=== PATIENT | female | born 1980 | race Two or more races ===

== ENCOUNTER → 2016-07-22 | Outpatient (CLI) | payer OTHER ==
[2016-07-22 12:26] LABS: BASO % 0 % (0-3); EOS % 0 % (0-3); HEMATOCRIT 38.8 % (36.0-47.0); HEMOGLOBIN 12.6 g/dL (12.0-15.5); LYMPH # 1.4 x10^3/uL (1.0-4.8); LYMPH % 13 % (24-48); MEAN CORPUSCULAR HEMOGLOBIN 28 pg (25-35); MEAN CORPUSCULAR HGB CONC 33 g/dL (31-37); MEAN CORPUSCULAR VOLUME 87 fL (79-100); MONO % 7 % (0-9); NEUT % 80 % (31-73); PLATELET COUNT 399 x10^3/uL (140-400); RED BLOOD COUNT 4.48 x10^6/uL (3.50-5.40); RED CELL DISTRIBUTION WIDTH 14.2 % (11.5-14.5); WHITE BLOOD COUNT 11.1 x10^3/uL (4.0-11.0)
[2016-07-22 12:42] LABS: ALBUMIN 3.4 g/dL (3.4-5.0); ALBUMIN/GLOBULIN RATIO 0.8 (1.0-1.7); CALCIUM 9.4 mg/dL (8.5-10.1); CREATININE 0.6 mg/dL (0.6-1.0); GFR 113.8; POTASSIUM 4.3 mmol/L (3.5-5.1); TOTAL BILIRUBIN 0.3 mg/dL (0.2-1.0); TOTAL PROTEIN 7.6 g/dL (6.4-8.2)
== END | disposition home or self-care (01) ==
LOC: LAB 11:44
PROVIDERS: ATTEND Psychiatry & Neurology Neurology
DX: G35 Multiple sclerosis (principal)
CPT/HCPCS: 36415; 80053; 82550; 82607; 84443; 85027

== ENCOUNTER 2019-01-24 09:48 | Inpatient (IN) | payer BC ==
[~2019-01-24] VITALS: Ht 165.1 cm; Wt 79.8 kg
[2019-01-24 10:37] VITALS: BP 105/65
[2019-01-24] MEDS ORDERED: FLU VAX QS 2019-20 (36MOS+)/PF 0.5 ML SYRINGE. VAX IM ONE (10:45)
[2019-01-24] MEDS ORDERED: DALF10TA PO (11:22)
[2019-01-24 14:11] LABS: BASO % 1 % (0-3); EOS # 0.3 x10^3/uL (0.0-0.7); EOS % 4 % (0-3); HEMATOCRIT 37.6 % (36.0-47.0); HEMOGLOBIN 12.1 g/dL (12.0-15.5); LYMPH # 1.9 x10^3/uL (1.0-4.8); LYMPH % 28 % (24-48); MEAN CORPUSCULAR HEMOGLOBIN 25 pg (25-35); MEAN CORPUSCULAR HGB CONC 32 g/dL (31-37); MEAN CORPUSCULAR VOLUME 78 fL (79-100); MONO # 0.5 x10^3/uL (0.0-1.1); MONO % 7 % (0-9); NEUT # 4.1 x10^3/uL (1.8-7.7); NEUT % 60 % (31-73); PLATELET COUNT 429 x10^3/uL (140-400); RED BLOOD COUNT 4.83 x10^6/uL (3.50-5.40); WHITE BLOOD COUNT 6.8 x10^3/uL (4.0-11.0)
--- NOTE | 2019-01-24 14:19 | RAD ---
EXAM: Chest, single view. HISTORY: MS exacerbation. COMPARISON: None. FINDINGS: A frontal view of the chest is obtained. There is no infiltrate, pleural effusion or pneumothorax. The heart is normal in size. IMPRESSION: No acute pulmonary finding. Electronically signed by: Geraldine Tirado MD (01/24/2019 2:17 PM) [place] [id number]
[2019-01-24 14:34] LABS: ALBUMIN 3.2 g/dL (3.4-5.0); ALBUMIN/GLOBULIN RATIO 0.7 (1.0-1.7); CALCIUM 8.8 mg/dL (8.5-10.1); CREATININE 0.8 mg/dL (0.6-1.0); GFR 80.3; POTASSIUM 3.6 mmol/L (3.5-5.1); TOTAL BILIRUBIN 0.2 mg/dL (0.2-1.0); TOTAL PROTEIN 7.8 g/dL (6.4-8.2)
[2019-01-24] MEDS: METOPROLOL SUCC 24HR ER 25 MG TAB.ER.24H. PO SCH (14:40)
[2019-01-24] MEDS: CHOLECALCIFEROL (VITAMIN D3) 1,000 UNIT TABLET PO SCH (14:40)
[2019-01-24] MEDS: IV NORMAL SALINE 1000ML BAG 1,000 ML IV SCH (14:41)
[2019-01-24] MEDS: methylPREDNISolone SOD SUCC PF 125 MG/2 ML VIAL. IV SCH ×2 (14:41→21:33)
[2019-01-24 15:00] VITALS: BP 114/78
[2019-01-24 15:09] LABS: BILIRUBIN,URINE NEGATIVE (NEG); CLARITY,URINE CLOUDY; COLOR,URINE YELLOW; NITRITE,URINE POSITIVE (NEG); PROTEIN,URINE 30 mg/dL (NEG-TRACE)
[2019-01-24 15:14] LABS: BACTERIA,URINE MANY /HPF (0-FEW); SQUAMOUS EPITHELIAL CELL,UR FEW /LPF
[2019-01-24 15:29] LABS: BARBITURATES NEG (NEG); BENZODIAZEPINES NEG (NEG); CANNABINOIDS NEG (NEG); COCAINE NEG (NEG); METHADONE NEG (NEG); OPIATES NEG (NEG); PHENCYCLIDINE NEG (NEG)
[2019-01-24 15:30] LABS: AMPHETAMINE/METHAMPHETAMINE NEG (NEG)
--- NOTE | 2019-01-24 17:12 | PDOC2 ---
NEUROLOGY CONSULT Date of Admission Date of Admission DATE: 01/24/19 TIME: 16:59 Reason for Consult Reason for Consult: IMPRESSION: MS exacerbation? Metabolic encephalopathy. Generalized weakness. UTI. Neurogenic bladder dysfunction. Wheelchair bound. Developmental delay. RECOMMENDATIONS/PLAN: Brain MRI w/wo contrast. Lab: see orders. Treat medical diseases. EEG maybe considered. OT/PT. HISTORY OF THE PRESENT ILLNESS: This is a 38-year-old female patient with history of MS, but no information of immunomodulator treatment in document. The patient had intellectual disability and is unable to provide information. She was reportedly to have mental status changes and increased generalized weakness to be brought to [facility] for further evaluation and treatment. PAST MEDICAL HISTORY: MS. Developmental delay. UTIs. Wheelchair bound. PAST SURGERY HISTORY: No major surgery recently. ALLERGY: Unknown MEDICATIONS: Refer to [facility] HISTORY: Non contributory. SOCIAL HISTORY: Lives at home with her family. Denies smoking, drinking, and illicit drug use. REVIEW OF SYSTEMS: Constitutional: No malnutrition, weight loss, cachexia. Head: No traumatic brain or head injury. Skin: No edema, or rash. Ear: No infection. Eyes: No vision loss or color blindness. Nose: No bleeding or purulent discharges. Hearing: No hearing decrease. Neck: No injury. Breast: No history of cancer, masses,or discharges. Cardiac: No MO, arrhythmia, CAD. Pulmonary: No COPD. GI: No GI ulcer, GI bleeding. Urinary/genital: UTIs. Endocrinologic: No cousin face, craniofacial dysmorphism, polydactyly. Skeletomuscular: Generalized weakness. Neurological: see HP. Psychiatric: Denies drug use/abuse. Otherwise, not -mdshe review of systems. PHYSICAL EXAMINATION: General appearance is in subacute distress. HEENT: Normocephalic and nontraumatic. Eyes, nose, ears, and throat are unrem arkable. Neck is supple. No lymphadenopathy. No crepitus. Cardiovascular: S1, S2, regular rate and rhythm. Pulmonary: Clear to auscultation bilaterally. Abdomen: Bowel sounds are positive. Extremities: No rash, lesions, or edema. No restriction of range of motion NEUROLOGICAL EXAMINATION: Awake. Partially oriented to time, place and person. PERRL. EOMI. CN: no focal findings. Muscle tone: within normal. Muscle strength: 5 UE, 4 LE, Left side 4 DTR: 1-2 Plantar reflex: Neutral response bilaterally Gait: not able to walk. Sensory exam: no acute abnormal findings. No acute cerebellar signs elicited. F-T-N test not performed due to not follow commands. Current Medications Current Medications Current Medications Influenza Virus Vaccine Quadrival (Afluria Quad 2019- (3yr Up) Syringe) 0.5 ml ONCE ONCE VAX IM Last administered on 01/24/19at 14:43; Start 01/24/19 at 10:45; Stop 01/24/19 at 12:42; Status DC Oxybutynin Chloride (Ditropan) 5 mg QHS PO ; Start 01/24/19 at 21:00 Metoprolol Succinate (Toprol Xl) 25 mg DAILY PO Last administered on 01/24/19at 14:40; Start 01/24/19 at 13:00 Vitamin D (Vitamin D3) 1,000 unit DAILY PO Last administered on 01/24/19at 14:40; Start 01/24/19 at 13:00 Sodium Chloride 1,000 ml @ 75 mls/hr [id number] IV Last administered on 01/24/19at 14:41; Start 01/24/19 at 12:45 Methylprednisolone Sodium Succinate (SOLU-Medrol 125MG VIAL) 60 mg Q8HRS IV Last administered on 01/24/19at 14:41; Start 01/24/19 at 14:00 Active Scripts Active Reported Ampyra (Dalfampridine) 10 Mg Tab.er.12h 1 Tab PO BID 30 Days Allergies Allergies: Allergies Coded Allergies Type Severity Reaction Last Updated Verified No Known Drug Allergies 01/24/19 No ROS Review of System The patient denies any associated fevers, chills, headache, ear pain, rhinorrhea, sore throat, stiff neck, productive cough, chest pain, shortness of breath, back or flank pain, abdominal pain, nausea, vomiting, diarrhea, constipation, dysuria, rash, numbness, weakness, tingling, incontinence, difficulty ambulating, or diaphoresis. Physical Exam Physical Exam General: Well developed, well nourished, no acute distress, well appearing HEENT: Pupils equally round and reactive to light, EOMI, no discharge, normal conjunctiva Neck: Supple, no nuchal rigidity, no JVD, trachea midline, no tenderness Cardiac: RRR, no murmurs, no gallops, no rubs Chest/Lungs: CTAB, no wheeze, no rhonchi, no crackles Abdomen: soft, non-distended, no guarding, no peritoneal signs, non-tender Back: No tenderness Extremities: no edema, pulses intact, non-tender,capillary refill <3 sec bilateral upper and lower extremities, Neuro: Alert and oriented x 4, no focal deficits, normal speech Vitals Vitals: Vital Signs Date Time Temp Pulse Resp B/P (MAP) Pulse Ox O2 Delivery O2 Flow Rate FiO2 01/24/19 15:00 97.8 82 18 114/78 (90) 100 Room Air 97.8 Labs Labs Laboratory Tests Test 01/24/19 13:50 01/24/19 15:00 White Blood Count 6.8 x10^3/uL (4.0-11.0) Red Blood Count 4.83 x10^6/uL (3.50-5.40) Hemoglobin 12.1 g/dL (12.0-15.5) Hematocrit 37.6 % (36.0-47.0) Mean Corpuscular Volume 78 fL (79-100) Mean Corpuscular Hemoglobin 25 pg (25-35) Mean Corpuscular Hemoglobin Concent 32 g/dL (31-37) Red Cell Distribution Width 17.0 % (11.5-14.5) Platelet Count 429 x10^3/uL (140-400) Neutrophils (%) (Auto) 60 % (31-73) Lymphocytes (%) (Auto) 28 % (24-48) Monocytes (%) (Auto) 7 % (0-9) Eosinophils (%) (Auto) 4 % (0-3) Basophils (%) (Auto) 1 % (0-3) Neutrophils # (Auto) 4.1 x10^3/uL (1.8-7.7) Lymphocytes # (Auto) 1.9 x10^3/uL (1.0-4.8) Monocytes # (Auto) 0.5 x10^3/uL (0.0-1.1) Eosinophils # (Auto) 0.3 x10^3/uL (0.0-0.7) Basophils # (Auto) 0.0 x10^3/uL (0.0-0.2) Sodium Level 142 mmol/L (136-145) Potassium Level 3.6 mmol/L (3.5-5.1) Chloride Level 105 mmol/L (98-107) Carbon Dioxide Level 28 mmol/L (21-32) Anion Gap 9 (6-14) Blood Urea Nitrogen 11 mg/dL (7-20) Creatinine 0.8 mg/dL (0.6-1.0) Estimated GFR (Cockcroft-Gault) 80.3 BUN/Creatinine Ratio 14 (6-20) Glucose Level 80 mg/dL (70-99) Calcium Level 8.8 mg/dL (8.5-10.1) Total Bilirubin 0.2 mg/dL (0.2-1.0) Aspartate Amino Transf (AST/SGOT) 16 U/L (15-37) Alanine Aminotransferase (ALT/SGPT) 18 U/L (14-59) Alkaline Phosphatase 104 U/L (46-116) Total Protein 7.8 g/dL (6.4-8.2) Albumin 3.2 g/dL (3.4-5.0) Albumin/Globulin Ratio 0.7 (1.0-1.7) Urine Collection Type Unknown Urine Color Yellow Urine Clarity Cloudy Urine pH 6.0 Urine Specific [place] 1.020 Urine Protein 30 mg/dL (NEG-TRACE) Urine Glucose (UA) Negative mg/dL (NEG) Urine Ketones (Stick) Negative mg/dL (NEG) Urine Blood Small (NEG) Urine Nitrite Positive (NEG) Urine Bilirubin Negative (NEG) Urine Urobilinogen Dipstick 1.0 mg/dL (0.2 mg/dL) Urine Leukocyte Esterase Large (NEG) Urine RBC 1-2 /HPF (0-2) Urine WBC 11-20 /HPF (0-4) Urine Squamous Epithelial Cells Few /LPF Urine Bacteria Many /HPF (0-FEW) Urine Mucus Mod /LPF Urine Opiates Screen Neg (NEG) Urine Methadone Screen Neg (NEG) Urine Barbiturates Neg (NEG) Urine Phencyclidine Screen Neg (NEG) Urine Amphetamine/Methamphetamine Neg (NEG) Urine Benzodiazepines Screen Neg (NEG) Urine Cocaine Screen Neg (NEG) Urine Cannabinoids Screen Neg (NEG) Urine Ethyl Alcohol Neg (NEG) Laboratory Tests Test 01/24/19 13:50 01/24/19 15:00 White Blood Count 6.8 x10^3/uL (4.0-11.0) Red Blood Count 4.83 x10^6/uL (3.50-5.40) Hemoglobin 12.1 g/dL (12.0-15.5) Hematocrit 37.6 % (36.0-47.0) Mean Corpuscular Volume 78 fL (79-100) Mean Corpuscular Hemoglobin 25 pg (25-35) Mean Corpuscular Hemoglobin Concent 32 g/dL (31-37) Red Cell Distribution Width 17.0 % (11.5-14.5) Platelet Count 429 x10^3/uL (140-400) Neutrophils (%) (Auto) 60 % (31-73) Lymphocytes (%) (Auto) 28 % (24-48) Monocytes (%) (Auto) 7 % (0-9) Eosinophils (%) (Auto) 4 % (0-3) Basophils (%) (Auto) 1 % (0-3) Neutrophils # (Auto) 4.1 x10^3/uL (1.8-7.7) Lymphocytes # (Auto) 1.9 x10^3/uL (1.0-4.8) Monocytes # (Auto) 0.5 x10^3/uL (0.0-1.1) Eosinophils # (Auto) 0.3 x10^3/uL (0.0-0.7) Basophils # (Auto) 0.0 x10^3/uL (0.0-0.2) Sodium Level 142 mmol/L (136-145) Potassium Level 3.6 mmol/L (3.5-5.1) Chloride Level 105 mmol/L (98-107) Carbon Dioxide Level 28 mmol/L (21-32) Anion Gap 9 (6-14) Blood Urea Nitrogen 11 mg/dL (7-20) Creatinine 0.8 mg/dL (0.6-1.0) Estimated GFR (Cockcroft-Gault) 80.3 BUN/Creatinine Ratio 14 (6-20) Glucose Level 80 mg/dL (70-99) Calcium Level 8.8 mg/dL (8.5-10.1) Total Bilirubin 0.2 mg/dL (0.2-1.0) Aspartate Amino Transf (AST/SGOT) 16 U/L (15-37) Alanine Aminotransferase (ALT/SGPT) 18 U/L (14-59) Alkaline Phosphatase 104 U/L (46-116) Total Protein 7.8 g/dL (6.4-8.2) Albumin 3.2 g/dL (3.4-5.0) Albumin/Globulin Ratio 0.7 (1.0-1.7) Urine Collection Type Unknown Urine Color Yellow Urine Clarity Cloudy Urine pH 6.0 Urine Specific [place] 1.020 Urine Protein 30 mg/dL (NEG-TRACE) Urine Glucose (UA) Negative mg/dL (NEG) Urine Ketones (Stick) Negative mg/dL (NEG) Urine Blood Small (NEG) Urine Nitrite Positive (NEG) Urine Bilirubin Negative (NEG) Urine Urobilinogen Dipstick 1.0 mg/dL (0.2 mg/dL) Urine Leukocyte Esterase Large (NEG) Urine RBC 1-2 /HPF (0-2) Urine WBC 11-20 /HPF (0-4) Urine Squamous Epithelial Cells Few /LPF Urine Bacteria Many /HPF (0-FEW) Urine Mucus Mod /LPF Urine Opiates Screen Neg (NEG) Urine Methadone Screen Neg (NEG) Urine Barbiturates Neg (NEG) Urine Phencyclidine Screen Neg (NEG) Urine Amphetamine/Methamphetamine Neg (NEG) Urine Benzodiazepines Screen Neg (NEG) Urine Cocaine Screen Neg (NEG) Urine Cannabinoids Screen Neg (NEG) Urine Ethyl Alcohol Neg (NEG) REHAN MENDEZ MD Jan 24, 2019 17:12
[2019-01-24 19:20] VITALS: BP 106/61
--- NOTE | 2019-01-24 20:50 | CONS ---
DATE OF CONSULTATION: 01/24/2019 ATTENDING PHYSICIAN: Alla Pearce MD REASON FOR CONSULTATION: The patient was seen at the request of Dr. Pearce for rehab evaluation. HISTORY: This is a 38-year-old female admitted on 01/24/2019, patient with history of multiple sclerosis, has been on disability taking DICTATION ENDS HERE SANA GARCIA MD DR: MAE/morena JOB#: [id number] / [id number]
[2019-01-24] MEDS: OXYBUTYNIN CHLORIDE 5 MG TABLET PO SCH (21:33)
[2019-01-24 23:27] VITALS: BP 107/67
[2019-01-25] MEDS: IV NORMAL SALINE 1000ML BAG 1,000 ML IV SCH ×2 (02:11→15:25)
[2019-01-25 03:58] VITALS: BP 112/65
--- NOTE | 2019-01-25 04:29 | CONS ---
DATE OF CONSULTATION: 01/24/2019 ATTENDING PHYSICIAN: Alla Pearce MD REASON FOR CONSULTATION: The patient was seen at the request of Dr. Pearce for rehab evaluation. HISTORY OF PRESENT ILLNESS: This is a 38-year-old female, on disability, with a diagnosis of multiple sclerosis made about 15 years ago. The patient with mobility, self-care, and cognitive deficits. Also, neurogenic bowel and bladder, had suprapubic catheter placed. The patient is requiring too much help, of 2 persons' assistance with transfers to get into the wheelchair. Her mother is having difficulty to take care of her. The patient was admitted for consideration of [place] [facility]. The patient denies any pain. PHYSICAL EXAMINATION: GENERAL: On examination today revealed a young female. The patient is obese. She is awake, follows some commands. EXTREMITIES: She had generalized muscle weakness with increased muscle tone, especially in the lower extremities. Deep tendon reflexes are slightly brisk in the upper extremities and at the knees, absent at both ankles and she had equal perception of touch and pinprick sensation bilaterally. She had painful range of motion of her extremity joints. Her skin is intact at this time. She requires assistance with bed mobility. She can roll from [id number]. 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 RECOMMENDATIONS: Agree with the plan for physical therapy and occupational therapy and to ask director of social work for consideration of long term care unit transfer when medically stable. Dr. Pearce, I appreciate asking me to participate in the care of this interesting patient. I will be glad to see her for followup with you on an as-needed basis. SANA GARCIA MD DR: MAE/morena JOB#: [id number] / [id number]
[2019-01-25] MEDS: methylPREDNISolone SOD SUCC PF 125 MG/2 ML VIAL. IV SCH ×3 (05:39→21:35)
[2019-01-25 09:00] VITALS: BP 128/76
[2019-01-25] MEDS: CHOLECALCIFEROL (VITAMIN D3) 1,000 UNIT TABLET PO SCH (09:00)
[2019-01-25] MEDS: METOPROLOL SUCC 24HR ER 25 MG TAB.ER.24H. PO SCH (09:01)
--- NOTE | 2019-01-25 09:49 | PDOC ---
Provider Note Provider Note Pt seen.H&P dictated.#[id number]. NEELIMA SAMAYOA MD Jan 25, 2019 09:49
[2019-01-25] MEDS: cefTRIAXone IV Push 1 GM VIAL. IVP SCH (10:19)
[2019-01-25] MEDS: ENOXAPARIN 40 MG/0.4 ML SYRINGE. SQ SCH (10:19)
--- NOTE | 2019-01-25 10:20 | HP ---
ADMIT DATE: 01/24/2019 LOCATION: 440 REASON FOR ADMISSION TO THE HOSPITAL: Multiple sclerosis exacerbation. HISTORY OF PRESENT ILLNESS: The patient is a 38-year-old female patient with history of developmental delay, multiple sclerosis, and generalized weakness. She has a suprapubic catheter and the patient has been at home, taken care by her mom. The patient says her home health has been visiting them recently and they have noticed that the patient's condition has been declining. She has been not getting out of the bed and her condition has declined and has a poor social situation, bad hygiene, and it was felt that it would be better off if she can go to a skilled or a long-term skilled nursing. The patient is being admitted to the hospital for further evaluation and treatment. PAST MEDICAL HISTORY: As mentioned above, has a developmental delay, multiple sclerosis, weakness, and neurogenic bladder, PAST SURGICAL HISTORY: Suprapubic catheter, had seen Urology here as well as . ALLERGIES: No known allergies. MEDICATIONS AT HOME: Ampyra 10 mg q.12 h., 1 tablet twice a day, given by Neurology at . PERSONAL HISTORY: No smoking, alcohol recovery. SOCIAL HISTORY: Lives at home with her mom. She is wheelchair level. REVIEW OF SYMPTOMS: Complains of weakness, not getting out of the bed, and poor social and hygiene conditions at home. PHYSICAL EXAMINATION: GENERAL: The patient is awake, not in any distress. VITAL SIGNS: Temperature 97, pulse 77, respirations 20, blood pressure 105/65, and 100% on room air. HEENT: Head is atraumatic. Pupils equal. Oral cavity: No congestion. NECK: Supple. Thyroid not enlarged. JVD not elevated. CHEST: Symmetrical. CARDIOVASCULAR: S1, S2. LUNGS: Clear to auscultation. ABDOMEN: Soft, no mass palpable, suprapubic catheter is present. RECTAL: Deferred. EXTREMITIES: The patient is eating breakfast, moving upper extremities and she is able to move lower extremities to the side on the bed, not able to lift off the bed. LABORATORY DATA: White count 6.8, hemoglobin 12, platelets 429. Electrolytes show sodium 142, potassium 3.6, chloride 105, bicarbonate 28, BUN 11, creatinine 0.8, glucose 80. LFTs normal. Urine shows large leukocyte esterase, 11-20 wbc's. Drug screen is negative. Chest x-ray: No acute findings. FINAL IMPRESSION: 1. Multiple sclerosis with exacerbation. 2. Developmental delay. 3. Suprapubic catheter present for neurogenic bladder. 4. Generalized weakness, wheelchair level. 5. Possible urinary tract infection, Plan:Pt was admitted to the hospital. IV solumedrol tid for MS exacerbation. Urine cultures sent, start with IV Rocephin. Neuro was consulted. Rehab was consulted. PT, OT, and social work, probably SNU placement. Deep venous thrombosis prevention. NEELIMA SAMAYOA MD DR: HILDA/morena JOB#: [id number] / [id number] [place]
[2019-01-25 11:00] VITALS: BP 114/76
--- NOTE | 2019-01-25 12:26 | NUR ---
SW following for discharge planning. Chart reviewed, discussed with RN. Pt is from home with mom, MRI and EEG today. Per notes, mom is having difficulty taking care of pt lately. PT/OT ordered. SW will continue to follow for discharge planning.
--- NOTE | 2019-01-25 13:28 | PDOC ---
PROGRESS NOTES Subjective Subjective No new complaints. Objective Objective Vital Signs Date Time Temp Pulse Resp B/P (MAP) Pulse Ox O2 Delivery O2 Flow Rate FiO2 01/25/19 11:00 97.4 82 18 114/76 (89) 95 Room Air 97.4 Intake and Output 01/25/19 07:00 Intake Total 1200 ml Output Total 1150 ml Balance 50 ml Intake Oral 1200 ml Output Urine Total 1150 ml # Bowel Movements 2 Physical Exam Physical Exam She is awake and sitting in bed and she continues with generalized muscle weakness and mobility,self care,cognitive and communication limitations. Plan Plan of Care To SNF when medically stable. Comment Review of Relevant I have reviewed the following items raúl (where applicable) has been applied. Labs Laboratory Tests Test 01/24/19 13:50 01/24/19 15:00 White Blood Count 6.8 x10^3/uL (4.0-11.0) Red Blood Count 4.83 x10^6/uL (3.50-5.40) Hemoglobin 12.1 g/dL (12.0-15.5) Hematocrit 37.6 % (36.0-47.0) Mean Corpuscular Volume 78 fL (79-100) Mean Corpuscular Hemoglobin 25 pg (25-35) Mean Corpuscular Hemoglobin Concent 32 g/dL (31-37) Red Cell Distribution Width 17.0 % (11.5-14.5) Platelet Count 429 x10^3/uL (140-400) Neutrophils (%) (Auto) 60 % (31-73) Lymphocytes (%) (Auto) 28 % (24-48) Monocytes (%) (Auto) 7 % (0-9) Eosinophils (%) (Auto) 4 % (0-3) Basophils (%) (Auto) 1 % (0-3) Neutrophils # (Auto) 4.1 x10^3/uL (1.8-7.7) Lymphocytes # (Auto) 1.9 x10^3/uL (1.0-4.8) Monocytes # (Auto) 0.5 x10^3/uL (0.0-1.1) Eosinophils # (Auto) 0.3 x10^3/uL (0.0-0.7) Basophils # (Auto) 0.0 x10^3/uL (0.0-0.2) Sodium Level 142 mmol/L (136-145) Potassium Level 3.6 mmol/L (3.5-5.1) Chloride Level 105 mmol/L (98-107) Carbon Dioxide Level 28 mmol/L (21-32) Anion Gap 9 (6-14) Blood Urea Nitrogen 11 mg/dL (7-20) Creatinine 0.8 mg/dL (0.6-1.0) Estimated GFR (Cockcroft-Gault) 80.3 BUN/Creatinine Ratio 14 (6-20) Glucose Level 80 mg/dL (70-99) Calcium Level 8.8 mg/dL (8.5-10.1) Total Bilirubin 0.2 mg/dL (0.2-1.0) Aspartate Amino Transf (AST/SGOT) 16 U/L (15-37) Alanine Aminotransferase (ALT/SGPT) 18 U/L (14-59) Alkaline Phosphatase 104 U/L (46-116) Total Protein 7.8 g/dL (6.4-8.2) Albumin 3.2 g/dL (3.4-5.0) Albumin/Globulin Ratio 0.7 (1.0-1.7) Urine Collection Type Unknown Urine Color Yellow Urine Clarity Cloudy Urine pH 6.0 Urine Specific [place] 1.020 Urine Protein 30 mg/dL (NEG-TRACE) Urine Glucose (UA) Negative mg/dL (NEG) Urine Ketones (Stick) Negative mg/dL (NEG) Urine Blood Small (NEG) Urine Nitrite Positive (NEG) Urine Bilirubin Negative (NEG) Urine Urobilinogen Dipstick 1.0 mg/dL (0.2 mg/dL) Urine Leukocyte Esterase Large (NEG) Urine RBC 1-2 /HPF (0-2) Urine WBC 11-20 /HPF (0-4) Urine Squamous Epithelial Cells Few /LPF Urine Bacteria Many /HPF (0-FEW) Urine Mucus Mod /LPF Urine Opiates Screen Neg (NEG) Urine Methadone Screen Neg (NEG) Urine Barbiturates Neg (NEG) Urine Phencyclidine Screen Neg (NEG) Urine Amphetamine/Methamphetamine Neg (NEG) Urine Benzodiazepines Screen Neg (NEG) Urine Cocaine Screen Neg (NEG) Urine Cannabinoids Screen Neg (NEG) Urine Ethyl Alcohol Neg (NEG) Laboratory Tests Test 01/24/19 13:50 01/24/19 15:00 White Blood Count 6.8 x10^3/uL (4.0-11.0) Red Blood Count 4.83 x10^6/uL (3.50-5.40) Hemoglobin 12.1 g/dL (12.0-15.5) Hematocrit 37.6 % (36.0-47.0) Mean Corpuscular Volume 78 fL (79-100) Mean Corpuscular Hemoglobin 25 pg (25-35) Mean Corpuscular Hemoglobin Concent 32 g/dL (31-37) Red Cell Distribution Width 17.0 % (11.5-14.5) Platelet Count 429 x10^3/uL (140-400) Neutrophils (%) (Auto) 60 % (31-73) Lymphocytes (%) (Auto) 28 % (24-48) Monocytes (%) (Auto) 7 % (0-9) Eosinophils (%) (Auto) 4 % (0-3) Basophils (%) (Auto) 1 % (0-3) Neutrophils # (Auto) 4.1 x10^3/uL (1.8-7.7) Lymphocytes # (Auto) 1.9 x10^3/uL (1.0-4.8) Monocytes # (Auto) 0.5 x10^3/uL (0.0-1.1) Eosinophils # (Auto) 0.3 x10^3/uL (0.0-0.7) Basophils # (Auto) 0.0 x10^3/uL (0.0-0.2) Sodium Level 142 mmol/L (136-145) Potassium Level 3.6 mmol/L (3.5-5.1) Chloride Level 105 mmol/L (98-107) Carbon Dioxide Level 28 mmol/L (21-32) Anion Gap 9 (6-14) Blood Urea Nitrogen 11 mg/dL (7-20) Creatinine 0.8 mg/dL (0.6-1.0) Estimated GFR (Cockcroft-Gault) 80.3 BUN/Creatinine Ratio 14 (6-20) Glucose Level 80 mg/dL (70-99) Calcium Level 8.8 mg/dL (8.5-10.1) Total Bilirubin 0.2 mg/dL (0.2-1.0) Aspartate Amino Transf (AST/SGOT) 16 U/L (15-37) Alanine Aminotransferase (ALT/SGPT) 18 U/L (14-59) Alkaline Phosphatase 104 U/L (46-116) Total Protein 7.8 g/dL (6.4-8.2) Albumin 3.2 g/dL (3.4-5.0) Albumin/Globulin Ratio 0.7 (1.0-1.7) Urine Collection Type Unknown Urine Color Yellow Urine Clarity Cloudy Urine pH 6.0 Urine Specific [place] 1.020 Urine Protein 30 mg/dL (NEG-TRACE) Urine Glucose (UA) Negative mg/dL (NEG) Urine Ketones (Stick) Negative mg/dL (NEG) Urine Blood Small (NEG) Urine Nitrite Positive (NEG) Urine Bilirubin Negative (NEG) Urine Urobilinogen Dipstick 1.0 mg/dL (0.2 mg/dL) Urine Leukocyte Esterase Large (NEG) Urine RBC 1-2 /HPF (0-2) Urine WBC 11-20 /HPF (0-4) Urine Squamous Epithelial Cells Few /LPF Urine Bacteria Many /HPF (0-FEW) Urine Mucus Mod /LPF Urine Opiates Screen Neg (NEG) Urine Methadone Screen Neg (NEG) Urine Barbiturates Neg (NEG) Urine Phencyclidine Screen Neg (NEG) Urine Amphetamine/Methamphetamine Neg (NEG) Urine Benzodiazepines Screen Neg (NEG) Urine Cocaine Screen Neg (NEG) Urine Cannabinoids Screen Neg (NEG) Urine Ethyl Alcohol Neg (NEG) Medications Current Medications Influenza Virus Vaccine Quadrival (Afluria Quad 2019-20 (3yr Up) Syringe) 0.5 ml ONCE ONCE VAX IM Last administered on 01/24/19at 14:43; Start 01/24/19 at 10:45; Stop 01/24/19 at 12:42; Status DC Oxybutynin Chloride (Ditropan) 5 mg QHS PO Last administered on 01/24/19at 2 1:33; Start 01/24/19 at 21:00 Metoprolol Succinate (Toprol Xl) 25 mg DAILY PO Last administered on 01/25/19 09:01; Start 01/24/19 at 13:00 Vitamin D (Vitamin D3) 1,000 unit DAILY PO Last administered on 01/25/19at 09:00; Start 01/24/19 at 13:00 Sodium Chloride 1,000 ml @ 75 mls/hr [id number] IV Last administered on 11/7/19at 02:11; Start 01/24/19 at 12:45 Methylprednisolone Sodium Succinate (SOLU-Medrol 125MG VIAL) 60 mg Q8HRS IV Last administered on 01/25/19at 05:39; Start 01/24/19 at 14:00 Ceftriaxone Sodium (Rocephin) 1 gm Q24H IVP Last administered on 01/25/19at 10:19; Start 01/25/19 at 10:00 Enoxaparin Sodium (Lovenox 40mg Syringe) 40 mg Q24H SQ Last administered on 01/25/19at 10:19; Start 01/25/19 at 09:45 Non-Formulary Medication (Dalfampridine (Ampyra)) 1 tab BID PO ; Start 01/25/19 at 21:00; Status UNV Active Scripts Active Reported Ampyra (Dalfampridine) 10 Mg Tab.er.12h 1 Tab PO BID 30 Days Vitals/I & O Vital Sign - Last 24 Hours 01/24/19 01/24/19 01/24/19 01/24/19 14:40 15:00 18:22 19:20 Temp 97.8 97.9 97.8 97.9 Pulse 77 82 82 Resp 18 18 B/P (MAP) 105/65 114/78 (90) 106/61 (76) Pulse Ox 100 95 O2 Delivery Room Air Room Air Room Air 01/24/19 01/24/19 01/24/19 01/25/19 20:00 21:35 23:27 03:58 Temp 97.8 97.6 97.8 97.6 Pulse 90 79 Resp 18 18 B/P (MAP) 107/67 (80) 112/65 (81) Pulse Ox 92 92 O2 Delivery Room Air Room Air Room Air Room Air 01/25/19 01/25/19 01/25/19 01/25/19 08:00 09:00 09:01 11:00 Temp 97.8 97.4 97.8 97.4 Pulse 76 79 82 Resp 18 18 B/P (MAP) 128/76 (93) 112/65 114/76 (89) Pulse Ox 99 95 O2 Delivery Room Air Room Air Room Air Intake and Output 01/24/19 01/24/19 01/25/19 15:00 23:00 07:00 Intake Total 300 ml 800 ml 100 ml Output Total 1150 ml Balance 300 ml 800 ml -1050 ml SANA GARCIA MD Jan 25, 2019 13:28
[2019-01-25] MEDS ORDERED: GADOTERATE 7.5 MMOL/15ML VIAL. IVP ONE (13:45)
--- NOTE | 2019-01-25 14:49 | PDOC ---
PROGRESS NOTES Assessment Assessment MS exacerbation? Metabolic encephalopathy. Generalized weakness. UTI. Neurogenic bladder dysfunction. Wheelchair bound. Developmental delay. RECOMMENDATIONS/PLAN: Brain MRI w/wo contrast pending reports. She has been treated with IV steroids. Treat medical diseases. Treat UTI per medical team. EEG. OT/PT. HISTORY OF THE PRESENT ILLNESS: This is a 38-year-old female patient with history of MS, but no information of immunomodulator treatment in document. The patient had intellectual disability and is unable to provide information. She was reportedly to have mental status changes and increased generalized weakness to be brought to [facility] for further evaluation and treatment. PAST MEDICAL HISTORY: MS. Developmental delay. UTIs. Wheelchair bound. PAST SURGERY HISTORY: No major surgery recently. ALLERGY: Unknown MEDICATIONS: Refer to [facility] FAMILY HISTORY: Non contributory. SOCIAL HISTORY: Lives at home with her family. Denies smoking, drinking, and illicit drug use. REVIEW OF SYSTEMS: Constitutional: No malnutrition, weight loss, cachexia. Head: No traumatic brain or head injury. Skin: No edema, or rash. Ear: No infection. Eyes: No vision loss or color blindness. Nose: No bleeding or purulent discharges. Hearing: No hearing decrease. Neck: No injury. Breast: No history of cancer, masses,or discharges. Cardiac: No UT, arrhythmia, CAD. Pulmonary: No COPD. GI: No GI ulcer, GI bleeding. Urinary/genital: UTIs. Endocrinologic: No cousin face, craniofacial dysmorphism, polydactyly. Skeletomuscular: Generalized weakness. Neurological: see HP. Psychiatric: Denies drug use/abuse. Otherwise, not [id number] review of systems. PHYSICAL EXAMINATION: General appearance is in subacute distress. HEENT: Normocephalic and nontraumatic. Eyes, nose, ears, and throat are unremarkable. Neck is supple. No lymphadenopathy. No crepitus. Cardiovascular: S1, S2, regular rate and rhythm. Pulmonary: Clear to auscultation bilaterally. Abdomen: Bowel sounds are positive. Extremities: No rash, lesions, or edema. No restriction of range of motion NEUROLOGICAL EXAMINATION: Awake. Partially oriented to time, place and person. PERRL. EOMI. CN: no focal findings. Muscle tone: within normal. Muscle strength: 5 UE, 4 LE, Left side 4 DTR: 1-2 Plantar reflex: Neutral response bilaterally Gait: not able to walk. Sensory exam: no acute abnormal findings. No acute cerebellar signs elicited. F-T-N test not performed due to not follow commands. Objective Objective Vital Signs Date Time Temp Pulse Resp B/P (MAP) Pulse Ox O2 Delivery O2 Flow Rate FiO2 01/25/19 11:00 97.4 82 18 114/76 (89) 95 Room Air 97.4 Intake and Output 01/25/19 07:00 Intake Total 1200 ml Output Total 1150 ml Balance 50 ml Intake Oral 1200 ml Output Urine Total 1150 ml # Bowel Movements 2 Vitals Signs Vitals VS - Last 72 Hours, by Label Date Time Temp Pulse Resp B/P (MAP) Pulse Ox O2 Delivery O2 Flow Rate FiO2 01/25/19 11:00 97.4 82 18 114/76 (89) 95 Room Air 97.4 01/25/19 09:01 79 112/65 01/25/19 09:00 97.8 76 18 128/76 (93) 99 Room Air 97.8 01/25/19 08:00 Room Air 01/25/19 03:58 97.6 79 18 112/65 (81) 92 Room Air 97.6 01/24/19 23:27 97.8 90 18 107/67 (80) 92 Room Air 97.8 01/24/19 21:35 Room Air 01/24/19 20:00 Room Air 01/24/19 19:20 97.9 82 18 106/61 (76) 95 Room Air 97.9 01/24/19 18:22 Room Air 01/24/19 15:00 97.8 82 18 114/78 (90) 100 Room Air 97.8 01/24/19 14:40 77 105/65 01/24/19 10:37 97.9 77 20 105/65 (78) 100 Room Air 97.9 Laboratory Laboratory Laboratory Tests Test 01/24/19 15:00 Urine Collection Type Unknown Urine Color Yellow Urine Clarity Cloudy Urine pH 6.0 Urine Specific [place] 1.020 Urine Protein 30 mg/dL (NEG-TRACE) Urine Glucose (UA) Negative mg/dL (NEG) Urine Ketones (Stick) Negative mg/dL (NEG) Urine Blood Small (NEG) Urine Nitrite Positive (NEG) Urine Bilirubin Negative (NEG) Urine Urobilinogen Dipstick 1.0 mg/dL (0.2 mg/dL) Urine Leukocyte Esterase Large (NEG) Urine RBC 1-2 /HPF (0-2) Urine WBC 11-20 /HPF (0-4) Urine Squamous Epithelial Cells Few /LPF Urine Bacteria Many /HPF (0-FEW) Urine Mucus Mod /LPF Urine Opiates Screen Neg (NEG) Urine Methadone Screen Neg (NEG) Urine Barbiturates Neg (NEG) Urine Phencyclidine Screen Neg (NEG) Urine Amphetamine/Methamphetamine Neg (NEG) Urine Benzodiazepines Screen Neg (NEG) Urine Cocaine Screen Neg (NEG) Urine Cannabinoids Screen Neg (NEG) Urine Ethyl Alcohol Neg (NEG) Medication Medications Current Medications Ceftriaxone Sodium (Rocephin) 1 gm Q24H IVP Last administered on 01/25/19at 10:19; Start 01/25/19 at 10:00 Enoxaparin Sodium (Lovenox 40mg Syringe) 40 mg Q24H SQ Last administered on 01/25/19at 10:19; Start 01/25/19 at 09:45 Gadoterate Meglumine (Dotarem) 16 ml 1X ONCE IVP Last administered on 01/25/19at 13:46; Start 01/25/19 at 13:45; Stop 01/25/19 at 13:46; Status DC Non-Formulary Medication (Dalfampridine (Ampyra)) 1 tab BID PO ; Start 01/25/19 at 21:00; Status UNV Oxybutynin Chloride (Ditropan) 5 mg QHS PO Last administered on 01/24/19at 21:33; Start 01/24/19 at 21:00 Comment Review of Relevant I have reviewed the following items raúl (where applicable) has been applied. REHAN MENDEZ MD Jan 25, 2019 14:49
[2019-01-25 15:00] VITALS: BP 129/77
--- NOTE | 2019-01-25 16:32 | RAD ---
BRAIN WO/W CONTRAST History: MS exacerbation Technique: Multiplanar, multi sequential pre and postcontrast MR imaging was performed of the brain. Comparison: August 20, 2016 Findings: No acute infarct. No intracranial hemorrhage. Multifocal focal and confluent foci of T/FLAIR hyperintensity within the subcortical, periventricular and deep white matter including the left basal ganglia, corpus callosum and left brachium pontis. Increased lesion within the right frontal periventricular white matter (series 7 image #18). There are T1 hypointense lesions. No pathologic enhancement. Imaged orbits are unremarkable. Imaged paranasal sinuses and mastoid air cells are clear. Impression: 1. Multifocal white matter lesions in a pattern typical of multiple sclerosis. Increased right frontal periventricular white matter lesion compared to 2017. No pathologic enhancement. Electronically signed by: Jeff Prieto DO (01/25/2019 4:29 PM) [id number]
--- NOTE | 2019-01-25 18:33 | EEG ---
DATE OF SERVICE: 01/25/2019 EEG NUMBER: [id number]. OBJECTIVE: This is a 38-year-old female patient with history of multiple sclerosis. She has mental status changes. EEG was requested to evaluate cerebral activity and to help rule out subclinical seizure. METHODS: Twenty electrodes were applied according to the international 10-20 electrode placement system. EKG monitoring, hyperventilation, intermittent photic stimulation, monopolar and bipolar montages are routinely utilized. The record was obtained on a digital system with video monitoring. FINDINGS: 1. Background: The patient was recorded in the awake and drowsy states. No actual sleep state was recorded. The overall background amplitude is 10-20 microvolts. A posterior dominant rhythm of 8-9 Hz is observed. 2. Abnormalities: No specific epileptiform discharge or electrographic seizure is seen. No focal or diffuse slowing. 3. Activation: Hyperventilation was performed with fair efforts and normal response. Intermittent photic stimulation was performed with photic driving. IMPRESSION: This electroencephalogram is a normal study for the awake and drowsy states. No actual sleep state was recorded. No focal, lateralizing, specific epileptiform discharge, or electrographic seizure is seen. REHAN MENDEZ MD DR: MARILU/morena JOB#: [id number] / [id number] ELDON
[2019-01-25 19:00] VITALS: BP 121/66
[2019-01-25] MEDS: DALFAMPRIDINE PO SCH (21:00)
[2019-01-25] MEDS ORDERED: ACETAMINOPHEN 500 MG TABLET PO PRN (21:30)
[2019-01-25] MEDS: OXYBUTYNIN CHLORIDE 5 MG TABLET PO SCH (21:35)
[2019-01-25 22:40] VITALS: BP 115/58
[2019-01-26 02:44] VITALS: BP 109/66
[2019-01-26] MEDS: IV NORMAL SALINE 1000ML BAG 1,000 ML IV SCH (04:45)
[2019-01-26] MEDS: methylPREDNISolone SOD SUCC PF 125 MG/2 ML VIAL. IV SCH (05:37)
[2019-01-26 07:00] VITALS: BP 129/76
[2019-01-26 07:20] LABS: CHOLESTEROL/HDL RATIO 3.9
[2019-01-26] MEDS: METOPROLOL SUCC 24HR ER 25 MG TAB.ER.24H. PO SCH (08:44)
[2019-01-26] MEDS: DALFAMPRIDINE PO SCH ×2 (08:47→21:00)
[2019-01-26] MEDS: CHOLECALCIFEROL (VITAMIN D3) 1,000 UNIT TABLET PO SCH (08:58)
[2019-01-26] MEDS: cefTRIAXone IV Push 1 GM VIAL. IVP SCH (08:59)
[2019-01-26] MEDS: ENOXAPARIN 40 MG/0.4 ML SYRINGE. SQ SCH (08:59)
[2019-01-26] MEDS ORDERED: predniSONE 10 MG TABLET PO SCH (09:45)
--- NOTE | 2019-01-26 09:49 | PDOC ---
PROGRESS NOTES Subjective Subjective feels ok Objective Objective Vital Signs Date Time Temp Pulse Resp B/P (MAP) Pulse Ox O2 Delivery O2 Flow Rate FiO2 01/26/19 07:00 98.2 60 16 129/76 (93) 94 Room Air 98.2 Intake and Output 01/26/19 07:00 Intake Total 1400 ml Output Total 1650 ml Balance -250 ml Intake Oral 1400 ml Output Urine Total 1650 ml Physical Exam Abdomen: Normal bowel sounds, Soft Heart: Regular rate, Normal S1, Normal S2 Extremities: No clubbing General: Alert HEENT: Atraumatic Lungs: Clear to auscultation MUSCULOSKELETAL: No swelling Neuro: Normal speech Psych/Mental Status: Mood NL COMMENT weakness legs Assessment Assessment FINAL IMPRESSION: 1. Multiple sclerosis with exacerbation. 2. Developmental challenged 3. Suprapubic catheter present for neurogenic bladder. 4. Generalized weakness, wheelchair level. 5. Possible urinary tract infection, Plan: MRI brain showed new lesions. EEG neg labs ok . d/c to SNU. oral antibiotics for uti. Pt was admitted to the hospital. IV solumedrol tid for MS exacerbation. Urine cultures sent, start with IV Rocephin. Neuro was consulted. Rehab was consulted. PT, OT, and social work, probably SNU placement. Deep venous thrombosis prevention. Comment Review of Relevant I have reviewed the following items raúl (where applicable) has been applied. Labs Laboratory Tests Test 01/26/19 05:27 Triglycerides Level 55 mg/dL (0-150) Cholesterol Level 185 mg/dL (0-200) LDL Cholesterol, Calculated 126 mg/dL (0-100) VLDL Cholesterol, Calculated 11 mg/dL (0-40) Non-HDL Cholesterol Calculated 137 mg/dL (0-129) HDL Cholesterol 48 mg/dL (40-60) Cholesterol/HDL Ratio 3.9 Thyroid Stimulating Hormone (TSH) 0.474 uIU/mL (0.358-3.74) Medications Current Medications Acetaminophen (Tylenol) 500 mg PRN Q6HRS PRN PO MILD PAIN 1-3 Last administered on 01/25/19at 21:35; Start 01/25/19 at 21:30 Ceftriaxone Sodium (Rocephin) 1 gm Q24H IVP Last administered on 01/26/19at 08:59; Start 01/25/19 at 10:00 Gadoterate Meglumine (Dotarem) 16 ml 1X ONCE IVP Last administered on 01/25/19at 13:46; Start 01/25/19 at 13:45; Stop 01/25/19 at 13:46; Status DC Non-Formulary Medication (Dalfampridine (Ampyra)) 1 tab BID PO ; Start 01/25/19 at 21:00; Status UNV Vitals/I & O Vital Sign - Last 24 Hours 01/25/19 01/25/19 01/25/19 01/25/19 11:00 15:00 19:00 20:00 Temp 97.4 97.5 97.8 97.4 97.5 97.8 Pulse 82 78 79 Resp 18 18 16 B/P (MAP) 114/76 (89) 129/77 (94) 121/66 (84) Pulse Ox 95 95 96 O2 Delivery Room Air Room Air Room Air Room Air 01/25/19 01/26/19 01/26/19 22:40 02:44 07:00 Temp 97.7 98.1 98.2 97.7 98.1 98.2 Pulse 67 75 60 Resp 17 20 16 B/P (MAP) 115/58 (77) 109/66 (80) 129/76 (93) Pulse Ox 95 95 94 O2 Delivery Room Air Room Air Room Air Intake and Output 01/25/19 01/25/19 01/26/19 15:00 23:00 07:00 Intake Total 540 ml 370 ml 490 ml Output Total 800 ml 850 ml Balance 540 ml -430 ml -360 ml NEELIMA SAMAYOA MD Jan 26, 2019 09:48
[2019-01-26] MEDS ORDERED: METO-239 PO (09:56)
[2019-01-26] MEDS ORDERED: ACET500T68 PO (09:56)
[2019-01-26] MEDS ORDERED: OXYB5TAB10 PO (09:56)
[2019-01-26] MEDS ORDERED: CHOL10003 PO (09:56)
[2019-01-26] MEDS ORDERED: CEFD300C PO (09:56)
--- NOTE | 2019-01-26 09:58 | SNU/HH DC ---
DISCHARGE ORDERS DISCHARGE INFORMATION: DISCHARGE DATE: Jan 26, 2019 CONDITION ON DISCHARGE: Stable CODE STATUS: Code Status: Full ALF: SNF STAY <30 DAYS: Yes HOSPICE: HOSPICE: No HOSPICE EVAL & TREAT: No LTAC: ADMIT TO LTAC: No POST DISCHARGE ORDERS: ACTIVITY ORDERS: Activity as tolerated DIET AFTER DISCHARGE: Low Sodium 2 gm CHECKS AFTER DISCHARGE: CHECKS AFTER DISCHARGE: Check blood press - daily FOLLOW-UP: Additional Instructions: supra pubic catheter care TREATMENT/EQUIPMENT ORDERS: Physical Therapy For: Evalulation/Treatment Occupational Therapy For: Evaluation/Treatment DISCHARGE MEDICATIONS: Home Meds Reported Medications Dalfampridine (AMPYRA) 10 Mg Tab.er.12h, 1 TAB PO BID for MS for 30 Days, #60 TAB 0 Refills 01/24/19 NEELIMA SAMAYOA MD Jan 26, 2019 09:58
--- NOTE | 2019-01-26 09:59 | PDOC ---
PROGRESS NOTES Subjective Subjective No new complaints. Objective Objective Vital Signs Date Time Temp Pulse Resp B/P (MAP) Pulse Ox O2 Delivery O2 Flow Rate FiO2 01/26/19 07:00 98.2 60 16 129/76 (93) 94 Room Air 98.2 Intake and Output 01/26/19 07:00 Intake Total 1400 ml Output Total 1650 ml Balance -250 ml Intake Oral 1400 ml Output Urine Total 1650 ml Physical Exam Physical Exam She is awake,sitting in bed with head end of bed elevated and she continues with generalized muscle weakness and requires maximal assistance with mobility. Plan Plan of Care Waiting for SNF transfer when medically stable. Comment Review of Relevant I have reviewed the following items raúl (where applicable) has been applied. Labs Laboratory Tests Test 01/24/19 13:50 01/24/19 15:00 01/26/19 05:27 White Blood Count 6.8 x10^3/uL (4.0-11.0) Red Blood Count 4.83 x10^6/uL (3.50-5.40) Hemoglobin 12.1 g/dL (12.0-15.5) Hematocrit 37.6 % (36.0-47.0) Mean Corpuscular Volume 78 fL (79-100) Mean Corpuscular Hemoglobin 25 pg (25-35) Mean Corpuscular Hemoglobin Concent 32 g/dL (31-37) Red Cell Distribution Width 17.0 % (11.5-14.5) Platelet Count 429 x10^3/uL (140-400) Neutrophils (%) (Auto) 60 % (31-73) Lymphocytes (%) (Auto) 28 % (24-48) Monocytes (%) (Auto) 7 % (0-9) Eosinophils (%) (Auto) 4 % (0-3) Basophils (%) (Auto) 1 % (0-3) Neutrophils # (Auto) 4.1 x10^3/uL (1.8-7.7) Lymphocytes # (Auto) 1.9 x10^3/uL (1.0-4.8) Monocytes # (Auto) 0.5 x10^3/uL (0.0-1.1) Eosinophils # (Auto) 0.3 x10^3/uL (0.0-0.7) Basophils # (Auto) 0.0 x10^3/uL (0.0-0.2) Sodium Level 142 mmol/L (136-145) Potassium Level 3.6 mmol/L (3.5-5.1) Chloride Level 105 mmol/L (98-107) Carbon Dioxide Level 28 mmol/L (21-32) Anion Gap 9 (6-14) Blood Urea Nitrogen 11 mg/dL (7-20) Creatinine 0.8 mg/dL (0.6-1.0) Estimated GFR (Cockcroft-Gault) 80.3 BUN/Creatinine Ratio 14 (6-20) Glucose Level 80 mg/dL (70-99) Calcium Level 8.8 mg/dL (8.5-10.1) Total Bilirubin 0.2 mg/dL (0.2-1.0) Aspartate Amino Transf (AST/SGOT) 16 U/L (15-37) Alanine Aminotransferase (ALT/SGPT) 18 U/L (14-59) Alkaline Phosphatase 104 U/L (46-116) Total Protein 7.8 g/dL (6.4-8.2) Albumin 3.2 g/dL (3.4-5.0) Albumin/Globulin Ratio 0.7 (1.0-1.7) Urine Collection Type Unknown Urine Color Yellow Urine Clarity Cloudy Urine pH 6.0 Urine Specific [place] 1.020 Urine Protein 30 mg/dL (NEG-TRACE) Urine Glucose (UA) Negative mg/dL (NEG) Urine Ketones (Stick) Negative mg/dL (NEG) Urine Blood Small (NEG) Urine Nitrite Positive (NEG) Urine Bilirubin Negative (NEG) Urine Urobilinogen Dipstick 1.0 mg/dL (0.2 mg/dL) Urine Leukocyte Esterase Large (NEG) Urine RBC 1-2 /HPF (0-2) Urine WBC 11-20 /HPF (0-4) Urine Squamous Epithelial Cells Few /LPF Urine Bacteria Many /HPF (0-FEW) Urine Mucus Mod /LPF Urine Opiates Screen Neg (NEG) Urine Methadone Screen Neg (NEG) Urine Barbiturates Neg (NEG) Urine Phencyclidine Screen Neg (NEG) Urine Amphetamine/Methamphetamine Neg (NEG) Urine Benzodiazepines Screen Neg (NEG) Urine Cocaine Screen Neg (NEG) Urine Cannabinoids Screen Neg (NEG) Urine Ethyl Alcohol Neg (NEG) Triglycerides Level 55 mg/dL (0-150) Cholesterol Level 185 mg/dL (0-200) LDL Cholesterol, Calculated 126 mg/dL (0-100) VLDL Cholesterol, Calculated 11 mg/dL (0-40) Non-HDL Cholesterol Calculated 137 mg/dL (0-129) HDL Cholesterol 48 mg/dL (40-60) Cholesterol/HDL Ratio 3.9 Thyroid Stimulating Hormone (TSH) 0.474 uIU/mL (0.358-3.74) Laboratory Tests Test 01/26/19 05:27 Triglycerides Level 55 mg/dL (0-150) Cholesterol Level 185 mg/dL (0-200) LDL Cholesterol, Calculated 126 mg/dL (0-100) VLDL Cholesterol, Calculated 11 mg/dL (0-40) Non-HDL Cholesterol Calculated 137 mg/dL (0-129) HDL Cholesterol 48 mg/dL (40-60) Cholesterol/HDL Ratio 3.9 Thyroid Stimulating Hormone (TSH) 0.474 uIU/mL (0.358-3.74) Medications Current Medications Influenza Virus Vaccine Quadrival (Afluria Quad 2019-20 (3yr Up) Syringe) 0.5 ml ONCE ONCE VAX IM Last administered on 01/24/19at 14:43; Start 01/24/19 at 10:45; Stop 01/24/19 at 12:42; Status DC Oxybutynin Chloride (Ditropan) 5 mg QHS PO Last administered on 01/25/19at 21:35; Start 01/24/19 at 21:00 Metoprolol Succinate (Toprol Xl) 25 mg DAILY PO Last administered on 01/25/19at 09:01; Start 01/24/19 at 13:00 Vitamin D (Vitamin D3) 1,000 unit DAILY PO Last administered on 01/26/19at 08:58; Start 01/24/19 at 13:00 Sodium Chloride 1,000 ml @ 75 mls/hr [id number] IV Last administered on 01/25/19at 02:11; Start 01/24/19 at 12:45; Stop 01/26/19 at 09:53; Status DC Methylprednisolone Sodium Succinate (SOLU-Medrol 125MG VIAL) 60 mg Q8HRS IV Last administered on 01/26/19at 05:37; Start 01/24/19 at 14:00; Stop 01/26/19 at 09:53; Status DC Ceftriaxone Sodium (Rocephin) 1 gm Q24H IVP Last administered on 01/26/19at 08:59; Start 01/25/19 at 10:00; Stop 01/26/19 at 09:53; Status DC Enoxaparin Sodium (Lovenox 40mg Syringe) 40 mg Q24H SQ Last administered on 01/26/19at 08:59; Start 01/25/19 at 09:45 Non-Formulary Medication (Dalfampridine (Ampyra)) 1 tab BID PO ; Start 01/25/19 at 21:00; Status UNV Gadoterate Meglumine (Dotarem) 16 ml 1X ONCE IVP Last administered on 01/25/19at 13:46; Start 01/25/19 at 13:45; Stop 01/25/19 at 13:46; Status DC Acetaminophen (Tylenol) 500 mg PRN Q6HRS PRN PO MILD PAIN 1-3 Last administered on 01/25/19at 21:35; Start 01/25/19 at 21:30 Cefdinir (Omnicef) 300 mg BID PO ; Start 01/26/19 at 09:45; Stop 01/31/19 at 06:00 Prednisone (Prednisone) 50 mg DAILY PO ; Start 01/26/19 at 09:45; Stop 01/31/19 at 06:00 Active Scripts Active Reported Ampyra (Dalfampridine) 10 Mg Tab.er.12h 1 Tab PO BID 30 Days Vitals/I & O Vital Sign - Last 24 Hours 01/25/19 01/25/19 01/25/19 01/25/19 11:00 15:00 19:00 20:00 Temp 97.4 97.5 97.8 97.4 97.5 97.8 Pulse 82 78 79 Resp 18 18 16 B/P (MAP) 114/76 (89) 129/77 (94) 121/66 (84) Pulse Ox 95 95 96 O2 Delivery Room Air Room Air Room Air Room Air 01/25/19 01/26/19 01/26/19 22:40 02:44 07:00 Temp 97.7 98.1 98.2 97.7 98.1 98.2 Pulse 67 75 60 Resp 17 20 16 B/P (MAP) 115/58 (77) 109/66 (80) 129/76 (93) Pulse Ox 95 95 94 O2 Delivery Room Air Room Air Room Air Intake and Output 01/25/19 01/25/19 01/26/19 15:00 23:00 07:00 Intake Total 540 ml 370 ml 490 ml Output Total 800 ml 850 ml Balance 540 ml -430 ml -360 ml SANA GARCIA MD Jan 26, 2019 09:59
[2019-01-26] MEDS: CEFDINIR 300 MG CAPSULE PO SCH ×2 (10:09→21:20)
--- NOTE | 2019-01-26 10:13 | PDOC ---
Provider Note Provider Note Discharge summamry dictated.#[id number]. NEELIMA SAMAYOA MD Jan 26, 2019 10:13
--- NOTE | 2019-01-26 10:35 | DS ---
DATE OF DISCHARGE: 01/29/2019 REASON FOR ADMISSION TO THE HOSPITAL: Multiple sclerosis exacerbation. CONSULTATIONS: 1. Dr. Keys. 2. Dr. Bolton. PROCEDURES DONE: MRI of the brain and EEG. COMPLICATIONS NOTED: None. HOSPITAL COURSE: The patient is a 38-year-old female. The patient is mentally challenging as well as has multiple sclerosis. She is in a wheelchair, lately she has been weak and poor social situation at home and the patient was admitted to the hospital, had MRI of the brain that showed some new lesions in the brain. The patient was given IV Solu-Medrol. The patient is already on Ampyra twice a day for MS, was given by Neurology. The patient also has a suprapubic catheter and had a UTI, was treated with Rocephin, culture was pending. The patient was weak, was seen by rehab, Dr. Bolton. It was felt that she needs to [facility] for further therapy and rehabilitation. FINAL DIAGNOSES: 1. Acute exacerbation of multiple sclerosis, new lesions on the MRI. 2. Weakness in the lower extremities secondary to multiple sclerosis. 3. Suprapubic catheter, presents for urinary tract infections secondary to suprapubic catheter. 4. Hypertension. 5. Mentally challenged. 6. UTI gram neg. DISPOSITION: To SNU. See [facility] for discharge medications, PT, OT. The patient had EEG negative for seizure activity. NEELIMA SAMAYOA MD DR: HILDA/morena JOB#: [id number] / [id number] ELDON
[2019-01-26 11:00] VITALS: BP 142/73
--- NOTE | 2019-01-26 11:13 | NUR ---
SULMA following. Discussed with RN, SULMA attempted to call pt's mother, Roya ([phone]) to discuss discharge planning and PT/OT recommendation of SNU. Phone call could not be connected from hospital desk phone or cell phone. SULMA played phone system message to RN, RN advised it sounds like the phone bill may not have been paid. SULMA unable to contact pt family at this time. SULMA asked RN to notify SULMA if someone comes to visit with pt, or if pt's mother calls the nurses station. SULMA will continue to follow.
--- NOTE | 2019-01-26 14:22 | NUR ---
SULMA following. SULMA was able to contact pt's mother, Roya at [phone]. Roya would like for pt to go to SNU then back home. Roya requested referral be sent to [facility]. SW faxed referral, [facility] cannot accept pt as they do not feel as though she has any skilled needs. SULMA left voicemail for Roya to determine second choice - SW had mentioned [facility] during prior phone call. SW to fax referral to [facility], awaiting pt's mothers return call. RN notified. SULMA will continue to follow.
--- NOTE | 2019-01-26 14:52 | PDOC ---
PROGRESS NOTES Assessment Assessment MS exacerbation? Metabolic encephalopathy. Generalized weakness. UTI. Neurogenic bladder dysfunction. Wheelchair bound. Developmental delay. No evidence of MS flare up. RECOMMENDATIONS/PLAN: Treat medical diseases. Treat UTI per medical team. Steroids Not recommended. May stop. OT/PT. FU with PCP. FU with Neurology as needed. HISTORY OF THE PRESENT ILLNESS: This is a 38-year-old female patient with history of MS, but no information of immunomodulator treatment in document. The patient had intellectual disability and is unable to provide information. She was reportedly to have mental status changes and increased generalized weakness to be brought to [facility] for further evaluation and treatment. PAST MEDICAL HISTORY: MS. Developmental delay. UTIs. Wheelchair bound. PAST SURGERY HISTORY: No major surgery recently. ALLERGY: Unknown MEDICATIONS: Refer to [facility] FAMILY HISTORY: Non contributory. SOCIAL HISTORY: Lives at home with her family. Denies smoking, drinking, and illicit drug use. REVIEW OF SYSTEMS: Constitutional: No malnutrition, weight loss, cachexia. Head: No traumatic brain or head injury. Skin: No edema, or rash. Ear: No infection. Eyes: No vision loss or color blindness. Nose: No bleeding or purulent discharges. Hearing: No hearing decrease. Neck: No injury. Breast: No history of cancer, masses,or discharges. Cardiac: No NM, arrhythmia, CAD. Pulmonary: No COPD. GI: No GI ulcer, GI bleeding. Urinary/genital: UTIs. Endocrinologic: No cousin face, craniofacial dysmorphism, polydactyly. Skeletomuscular: Generalized weakness. Neurological: see HP. Psychiatric: Denies drug use/abuse. Otherwise, not [id number] review of systems. PHYSICAL EXAMINATION: General appearance is in no acute distress. HEENT: Normocephalic and nontraumatic. Eyes, nose, ears, and throat are unremarkable. Neck is supple. No lymphadenopathy. No crepitus. Cardiovascular: S1, S2, regular rate and rhythm. Pulmonary: Clear to auscultation bilaterally. Abdomen: Bowel sounds are positive. Extremities: No rash, lesions, or edema. No restriction of range of motion NEUROLOGICAL EXAMINATION: Awake. Partially oriented to time, place and person. PERRL. EOMI. CN: no focal findings. Muscle tone: within normal. Muscle strength: 5 UE, 4+ LE, Left side 4 DTR: 1-2 Plantar reflex: Neutral response bilaterally Gait: not examined. Sensory exam: no acute abnormal findings. No acute cerebellar signs elicited. F-T-N test mildly inaccurate. Objective Objective Vital Signs Date Time Temp Pulse Resp B/P (MAP) Pulse Ox O2 Delivery O2 Flow Rate FiO2 01/26/19 11:00 98.1 66 18 142/73 (96) 96 Room Air 98.1 Intake and Output 01/26/19 07:00 Intake Total 1400 ml Output Total 1650 ml Balance -250 ml Intake Oral 1400 ml Output Urine Total 1650 ml Vitals Signs Vitals VS - Last 72 Hours, by Label Date Time Temp Pulse Resp B/P (MAP) Pulse Ox O2 Delivery O2 Flow Rate FiO2 01/26/19 11:00 98.1 66 18 142/73 (96) 96 Room Air 98.1 01/26/19 08:00 Room Air 01/26/19 07:00 98.2 60 16 129/76 (93) 94 Room Air 98.2 01/26/19 02:44 98.1 75 20 109/66 (80) 95 Room Air 98.1 01/25/19 22:40 97.7 67 17 115/58 (77) 95 Room Air 97.7 01/25/19 20:00 Room Air 01/25/19 19:00 97.8 79 16 121/66 (84) 96 Room Air 97.8 01/25/19 15:00 97.5 78 18 129/77 (94) 95 Room Air 97.5 01/25/19 11:00 97.4 82 18 114/76 (89) 95 Room Air 97.4 01/25/19 09:01 79 112/65 01/25/19 09:00 97.8 76 18 128/76 (93) 99 Room Air 97.8 01/25/19 08:00 Room Air Laboratory Laboratory Laboratory Tests Test 01/26/19 05:27 Triglycerides Level 55 mg/dL (0-150) Cholesterol Level 185 mg/dL (0-200) LDL Cholesterol, Calculated 126 mg/dL (0-100) VLDL Cholesterol, Calculated 11 mg/dL (0-40) Non-HDL Cholesterol Calculated 137 mg/dL (0-129) HDL Cholesterol 48 mg/dL (40-60) Cholesterol/HDL Ratio 3.9 Thyroid Stimulating Hormone (TSH) 0.474 uIU/mL (0.358-3.74) Medication Medications Current Medications Acetaminophen (Tylenol) 500 mg PRN Q6HRS PRN PO MILD PAIN 1-3 Last administered on 01/25/19at 21:35; Start 01/25/19 at 21:30 Cefdinir (Omnicef) 300 mg BID PO Last administered on 01/26/19 10:09; Start 01/26/19 at 09:45; Stop 01/31/19 at 06:00 Non-Formulary Medication (Dalfampridine (Ampyra)) 1 tab BID PO ; Start 01/25/19 at 21:00; Status UNV Prednisone (Prednisone) 50 mg DAILY PO Last administered on 01/26/19at 10:09; Start 01/26/19 at 09:45; Stop 01/31/19 at 06:00 Comment Review of Relevant I have reviewed the following items raúl (where applicable) has been applied. REHAN MENDEZ MD Jan 26, 2019 14:52
[2019-01-26 15:00] VITALS: BP 123/69
--- NOTE | 2019-01-26 15:14 | NUR ---
Wound care: Patient seen per wound care consult regarding suprapubic catheter site. Site is leaking but there is no open wound, area around catheter is reddened but not open. A drain sponge placed to keep drainage off skin. There are no open wounds at this time. Bed lowered and call light in reach. Wound care will sign off at this time.
[2019-01-26 19:30] VITALS: BP 132/77
[2019-01-26] MEDS: OXYBUTYNIN CHLORIDE 5 MG TABLET PO SCH (21:20)
[2019-01-26 23:08] VITALS: BP 130/75
[2019-01-27 01:08] LABS: HEMOGLOBIN A1C 5.4 % (4.8-5.6)
[2019-01-27 03:23] VITALS: BP 105/60
[2019-01-27 07:00] VITALS: BP 118/64
[2019-01-27] MEDS: DALFAMPRIDINE PO SCH ×2 (09:00→20:10)
--- NOTE | 2019-01-27 09:44 | PDOC ---
PROGRESS NOTES Subjective Subjective feels ok Objective Objective Vital Signs Date Time Temp Pulse Resp B/P (MAP) Pulse Ox O2 Delivery O2 Flow Rate FiO2 01/27/19 07:00 97.8 84 18 118/64 (82) 96 Room Air 97.8 Intake and Output 01/27/19 07:00 Intake Total 2360 ml Output Total 300 ml Balance 2060 ml Intake Oral 1360 ml IV Total 1000 ml Output Urine Total 300 ml # Bowel Movements 1 Physical Exam Abdomen: Normal bowel sounds, Soft Heart: Regular rate, Normal S1, Normal S2 Extremities: No clubbing General: Alert HEENT: Atraumatic Lungs: Clear to auscultation MUSCULOSKELETAL: No swelling Neuro: Normal speech Psych/Mental Status: Mood NL COMMENT weakness legs Assessment Assessment FINAL IMPRESSION: 1. Multiple sclerosis with exacerbation. 2. Developmental challenged 3. Suprapubic catheter present for neurogenic bladder. 4. Generalized weakness, wheelchair level. 5. Possible urinary tract infection, Plan:waiting for SNU placement MRI brain showed new lesions. EEG neg labs ok . d/c steroids On oral antibiotics for uti.> 100,000 gram neg Pt was admitted to the hospital. IV solumedrol tid for MS exacerbation. Urine cultures sent, start with IV Rocephin. Neuro was consulted. Rehab was consulted. PT, OT, and social work, probably SNU placement. Deep venous thrombosis prevention. Comment Review of Relevant I have reviewed the following items raúl (where applicable) has been applied. Labs Microbiology 01/24/19 Urine Culture - Preliminary, Resulted 01/24/19 Urine Culture Result 1 (MICHELINE) - Preliminary, Resulted Medications Current Medications Cefdinir (Omnicef) 300 mg BID PO Last administered on 01/26/19at 21:20; Start 01/26/19 at 09:45; Stop 01/31/19 at 06:00 Prednisone (Prednisone) 50 mg DAILY PO Last administered on 01/26/19at 10:09; Start 01/26/19 at 09:45; Stop 01/27/19 at 08:58; Status DC Vitals/I & O Vital Sign - Last 24 Hours 01/26/19 01/26/19 01/26/19 01/26/19 11:00 15:00 19:30 20:00 Temp 98.1 97.8 97.4 98.1 97.8 97.4 Pulse 66 74 74 Resp 18 16 18 B/P (MAP) 142/73 (96) 123/69 (87) 132/77 (95) Pulse Ox 96 95 95 O2 Delivery Room Air Room Air Room Air Room Air 01/26/19 01/27/19 01/27/19 23:08 03:23 07:00 Temp 97.4 98.2 97.8 97.4 98.2 97.8 Pulse 71 60 84 Resp 18 18 18 B/P (MAP) 130/75 (93) 105/60 (75) 118/64 (82) Pulse Ox 95 96 96 O2 Delivery Room Air Room Air Room Air Intake and Output 01/26/19 01/26/19 01/27/19 15:00 23:00 07:00 Intake Total 200 ml 2160 ml Output Total 300 ml Balance 200 ml 1860 ml NEELIMA SAMAYOA MD Jan 27, 2019 09:44
[2019-01-27 11:00] VITALS: BP 117/80
--- NOTE | 2019-01-27 11:08 | PDOC ---
PROGRESS NOTES Subjective Subjective No new complaints. Objective Objective Vital Signs Date Time Temp Pulse Resp B/P (MAP) Pulse Ox O2 Delivery O2 Flow Rate FiO2 01/27/19 07:00 97.8 84 18 118/64 (82) 96 Room Air 97.8 Intake and Output 01/27/19 07:00 Intake Total 2360 ml Output Total 300 ml Balance 2060 ml Intake Oral 1360 ml IV Total 1000 ml Output Urine Total 300 ml # Bowel Movements 1 Physical Exam Physical Exam She is awake,supine in bed and no change with her neurological status and she continues to require maximal help with mobility and self care and cognitive problems persist. Plan Plan of Care Waiting for placement. Comment Review of Relevant I have reviewed the following items raúl (where applicable) has been applied. Labs Laboratory Tests Test 01/26/19 05:27 Hemoglobin A1c 5.4 % (4.8-5.6) Triglycerides Level 55 mg/dL (0-150) Cholesterol Level 185 mg/dL (0-200) LDL Cholesterol, Calculated 126 mg/dL (0-100) VLDL Cholesterol, Calculated 11 mg/dL (0-40) Non-HDL Cholesterol Calculated 137 mg/dL (0-129) HDL Cholesterol 48 mg/dL (40-60) Cholesterol/HDL Ratio 3.9 Thyroid Stimulating Hormone (TSH) 0.474 uIU/mL (0.358-3.74) Microbiology 01/24/19 Urine Culture - Preliminary, Resulted 01/24/19 Urine Culture Result 1 (MICHELINE) - Preliminary, Resulted Medications Current Medications Influenza Virus Vaccine Quadrival (Afluria Quad 2019-20 (3yr Up) Syringe) 0.5 ml ONCE ONCE VAX IM Last administered on 01/24/19at 14:43; Start 01/24/19 at 10:45; Stop 01/24/19 at 12:42; Status DC Oxybutynin Chloride (Ditropan) 5 mg QHS PO Last administered on 01/26/19at 21:20; Start 01/24/19 at 21:00 Metoprolol Succinate (Toprol Xl) 25 mg DAILY PO Last administered on 01/25/19at 09:01; Start 01/24/19 at 13:00 Vitamin D (Vitamin D3) 1,000 unit DAILY PO Last administered on 01/26/19at 08:58; Start 01/24/19 at 13:00 Sodium Chloride 1,000 ml @ 75 mls/hr [id number] IV Last administered on 01/25/19at 02:11; Start 01/24/19 at 12:45; Stop 01/26/19 at 09:53; Status DC Methylprednisolone Sodium Succinate (SOLU-Medrol 125MG VIAL) 60 mg Q8HRS IV Last administered on 01/26/19at 05:37; Start 01/24/19 at 14:00; Stop 01/26/19 at 09:53; Status DC Ceftriaxone Sodium (Rocephin) 1 gm Q24H IVP Last administered on 01/26/19 08:59; Start 01/25/19 at 10:00; Stop 01/26/19 at 09:53; Status DC Enoxaparin Sodium (Lovenox 40mg Syringe) 40 mg Q24H SQ Last administered on 01/26/19at 08:59; Start 01/25/19 at 09:45 Non-Formulary Medication (Dalfampridine (Ampyra)) 1 tab BID PO ; Start 01/25/19 at 21:00; Status UNV Gadoterate Meglumine (Dotarem) 16 ml 1X ONCE IVP Last administered on 01/25/19at 13:46; Start 01/25/19 at 13:45; Stop 01/25/19 at 13:46; Status DC Acetaminophen (Tylenol) 500 mg PRN Q6HRS PRN PO MILD PAIN 1-3 Last administered on 01/25/19at 21:35; Start 01/25/19 at 21:30 Cefdinir (Omnicef) 300 mg BID PO Last administered on 01/26/19at 21:20; Start 01/26/19 at 09:45; Stop 01/31/19 at 06:00 Prednisone (Prednisone) 50 mg DAILY PO Last administered on 01/26/19at 10:09; Start 01/26/19 at 09:45; Stop 01/27/19 at 08:58; Status DC Active Scripts Active Vitamin D3 (Cholecalciferol (Vitamin D3)) 25 Mcg Tablet 1,000 Unit PO DAILY 30 Days Oxybutynin Chloride 5 Mg Tablet 5 Mg PO QHS 30 Days Acetaminophen 500 Mg Tablet 500 Mg PO PRN Q6HRS PRN 7 Days Metoprolol Succinate ( Xl ) (Metoprolol Succinate) 25 Mg Tab.er.24h 25 Mg PO DAILY 30 Days Cefdinir 300 Mg Capsule 300 Mg PO BID 5 Days Reported Ampyra (Dalfampridine) 10 Mg Tab.er.12h 1 Tab PO BID 30 Days Vitals/I & O Vital Sign - Last 24 Hours 01/26/19 01/26/19 01/26/19 01/26/19 15:00 19:30 20:00 23:08 Temp 97.8 97.4 97.4 97.8 97.4 97.4 Pulse 74 74 71 Resp 16 18 18 B/P (MAP) 123/69 (87) 132/77 (95) 130/75 (93) Pulse Ox 95 95 95 O2 Delivery Room Air Room Air Room Air Room Air 01/27/19 01/27/19 03:23 07:00 Temp 98.2 97.8 98.2 97.8 Pulse 60 84 Resp 18 18 B/P (MAP) 105/60 (75) 118/64 (82) Pulse Ox 96 96 O2 Delivery Room Air Room Air Intake and Output 01/26/19 01/26/19 01/27/19 15:00 23:00 07:00 Intake Total 200 ml 2160 ml Output Total 300 ml Balance 200 ml 1860 ml SANA GARCIA MD Jan 27, 2019 11:08
[2019-01-27] MEDS: CHOLECALCIFEROL (VITAMIN D3) 1,000 UNIT TABLET PO SCH (12:06)
[2019-01-27] MEDS: CEFDINIR 300 MG CAPSULE PO SCH ×2 (12:06→20:09)
[2019-01-27] MEDS: ENOXAPARIN 40 MG/0.4 ML SYRINGE. SQ SCH (12:07)
[2019-01-27] MEDS: METOPROLOL SUCC 24HR ER 25 MG TAB.ER.24H. PO SCH (12:07)
[2019-01-27 15:00] VITALS: BP 113/68
--- NOTE | 2019-01-27 16:38 | NUR ---
I spoke with pt's mom, Roya to see what her understanding was of where we are as far as finding a place for pt to go when discharged from hospital. She felt that we were "waiting to see if insurance would cover her at [facility]" and was told that that could not happen until Tuesday.
[2019-01-27 19:00] VITALS: BP 108/63
[2019-01-27] MEDS: OXYBUTYNIN CHLORIDE 5 MG TABLET PO SCH (20:09)
[2019-01-27 23:00] VITALS: BP 96/59
[2019-01-28 03:00] VITALS: BP 103/64
[2019-01-28 07:59] VITALS: BP 103/55
[2019-01-28] MEDS: METOPROLOL SUCC 24HR ER 25 MG TAB.ER.24H. PO SCH (09:00)
[2019-01-28] MEDS: DALFAMPRIDINE PO SCH ×2 (09:00→20:26)
[2019-01-28] MEDS: CHOLECALCIFEROL (VITAMIN D3) 1,000 UNIT TABLET PO SCH (09:39)
[2019-01-28] MEDS: CEFDINIR 300 MG CAPSULE PO SCH ×2 (09:39→20:26)
[2019-01-28] MEDS: ENOXAPARIN 40 MG/0.4 ML SYRINGE. SQ SCH (09:42)
--- NOTE | 2019-01-28 10:42 | PDOC ---
PROGRESS NOTES Subjective Subjective no new problems Objective Objective Vital Signs Date Time Temp Pulse Resp B/P (MAP) Pulse Ox O2 Delivery O2 Flow Rate FiO2 01/28/19 08:00 Room Air 01/28/19 07:59 97.6 69 16 103/55 (71) 94 97.6 Intake and Output 01/28/19 07:00 Intake Total 240 ml Output Total 850 ml Balance -610 ml Intake Oral 240 ml Output Urine Total 850 ml Physical Exam Abdomen: Normal bowel sounds, Soft Heart: Regular rate, Normal S1, Normal S2 Extremities: No clubbing General: Alert HEENT: Atraumatic Lungs: Clear to auscultation MUSCULOSKELETAL: No swelling Neuro: Normal speech Psych/Mental Status: Mood NL COMMENT weakness legs Assessment Assessment FINAL IMPRESSION: 1. Multiple sclerosis with exacerbation. 2. Developmental challenged 3. Suprapubic catheter present for neurogenic bladder. 4. Generalized weakness, wheelchair level. 5. Possible urinary tract infection, Plan:waiting for SNU placement MRI brain showed new lesions. EEG neg labs ok . d/c steroids On oral antibiotics for uti.> 100,000 gram neg Pt was admitted to the hospital. IV solumedrol tid for MS exacerbation. Urine cultures sent, start with IV Rocephin. Neuro was consulted. Rehab was consulted. PT, OT, and social work, probably SNU placement. Deep venous thrombosis prevention. Comment Review of Relevant I have reviewed the following items raúl (where applicable) has been applied. Labs Microbiology 01/24/19 Urine Culture - Preliminary, Resulted 01/24/19 Urine Culture Result 1 (MICHELINE) - Preliminary, Resulted Vitals/I & O Vital Sign - Last 24 Hours 01/27/19 01/27/19 01/27/19 01/27/19 11:00 12:07 15:00 19:00 Temp 97.9 98.4 97.8 97.9 98.4 97.8 Pulse 72 72 81 89 Resp 18 18 18 B/P (MAP) 117/80 (92) 117/80 113/68 (83) 108/63 (78) Pulse Ox 95 97 94 O2 Delivery Room Air Room Air Room Air 01/27/19 01/27/19 01/28/19 01/28/19 20:30 23:00 03:00 07:59 Temp 97.8 98.3 97.6 97.8 98.3 97.6 Pulse 63 79 69 Resp 18 18 16 B/P (MAP) 96/59 (71) 103/64 (77) 103/55 (71) Pulse Ox 95 96 94 O2 Delivery Room Air Room Air Room Air Room Air 01/28/19 08:00 O2 Delivery Room Air Intake and Output 01/27/19 01/27/19 01/28/19 15:00 23:00 07:00 Intake Total 240 ml Output Total 400 ml 450 ml Balance -400 ml -210 ml NEELIMA SAMAYOA MD Jan 28, 2019 10:42
[2019-01-28 11:59] VITALS: BP 112/68
[2019-01-28 15:13] VITALS: BP 106/64
[2019-01-28 19:00] VITALS: BP 108/56
[2019-01-28] MEDS: LACTOBACILLUS RHAMNOSUS GG 1 CAPSULE. PO SCH (20:26)
[2019-01-28] MEDS: OXYBUTYNIN CHLORIDE 5 MG TABLET PO SCH (20:26)
[2019-01-28 23:00] VITALS: BP 106/54
[2019-01-29 03:00] VITALS: BP 108/58
[2019-01-29 07:00] VITALS: BP 108/68
[2019-01-29] MEDS: DALFAMPRIDINE PO SCH (08:22)
[2019-01-29] MEDS: CHOLECALCIFEROL (VITAMIN D3) 1,000 UNIT TABLET PO SCH (08:23)
[2019-01-29] MEDS: METOPROLOL SUCC 24HR ER 25 MG TAB.ER.24H. PO SCH (08:23)
[2019-01-29] MEDS: LACTOBACILLUS RHAMNOSUS GG 1 CAPSULE. PO SCH (08:23)
[2019-01-29] MEDS: CEFDINIR 300 MG CAPSULE PO SCH (08:23)
[2019-01-29] MEDS: ENOXAPARIN 40 MG/0.4 ML SYRINGE. SQ SCH (08:26)
--- NOTE | 2019-01-29 09:24 | PDOC ---
PROGRESS NOTES Subjective Subjective No new complaints. Objective Objective Vital Signs Date Time Temp Pulse Resp B/P (MAP) Pulse Ox O2 Delivery O2 Flow Rate FiO2 01/29/19 08:23 74 108/68 01/29/19 07:00 97.4 18 95 Room Air 97.4 Intake and Output 01/29/19 07:00 Intake Total 1100 ml Output Total 2450 ml Balance -1350 ml Intake Oral 1100 ml Output Urine Total 2450 ml Physical Exam Physical Exam She is awake and seems to be comfortable sitting in bed with head end elevated and she continues with quadriparesis and mobility and self care limitations. Plan Plan of Care Waiting for placement. Comment Review of Relevant I have reviewed the following items raúl (where applicable) has been applied. Labs Microbiology 01/24/19 Urine Culture - Final, Complete 01/24/19 Urine Culture Result 1 (MICHELINE) - Final, Complete 01/24/19 Antimicrobic Susceptibility - Final, Complete Medications Current Medications Influenza Virus Vaccine Quadrival (Afluria Quad 2019-20 (3yr Up) Syringe) 0.5 ml ONCE ONCE VAX IM Last administered on 01/24/19at 14:43; Start 01/24/19 at 10:45; Stop 01/24/19 at 12:42; Status DC Oxybutynin Chloride (Ditropan) 5 mg QHS PO Last administered on 01/28/19at 20: 26; Start 01/24/19 at 21:00 Metoprolol Succinate (Toprol Xl) 25 mg DAILY PO Last administered on 01/29/19at 08:23; Start 01/24/19 at 13:00 Vitamin D (Vitamin D3) 1,000 unit DAILY PO Last administered on 01/29/19at 08:23; Start 01/24/19 at 13:00 Sodium Chloride 1,000 ml @ 75 mls/hr [id number] IV Last administered on 01/25/19at 02:11; Start 01/24/19 at 12:45; Stop 01/26/19 at 09:53; Status DC Methylprednisolone Sodium Succinate (SOLU-Medrol 125MG VIAL) 60 mg Q8HRS IV Last administered on 01/26/19at 05:37; Start 01/24/19 at 14:00; Stop 01/26/19 at 09:53; Status DC Ceftriaxone Sodium (Rocephin) 1 gm Q24H IVP Last administered on 01/26/19 08:59; Start 01/25/19 at 10:00; Stop 01/26/19 at 09:53; Status DC Enoxaparin Sodium (Lovenox 40mg Syringe) 40 mg Q24H SQ Last administered on 01/29/19at 08:26; Start 01/25/19 at 09:45 Non-Formulary Medication (Dalfampridine (Ampyra)) 1 tab BID PO ; Start 01/25/19 at 21:00; Status UNV Gadoterate Meglumine (Dotarem) 16 ml 1X ONCE IVP Last administered on 01/25/19at 13:46; Start 01/25/19 at 13:45; Stop 01/25/19 at 13:46; Status DC Acetaminophen (Tylenol) 500 mg PRN Q6HRS PRN PO MILD PAIN 1-3 Last administered on 01/25/19at 21:35; Start 01/25/19 at 21:30 Cefdinir (Omnicef) 300 mg BID PO Last administered on 01/29/19at 08:23; Start 01/26/19 at 09:45; Stop 01/31/19 at 06:00 Prednisone (Prednisone) 50 mg DAILY PO Last administered on 01/26/19at 10:09; Start 01/26/19 at 09:45; Stop 01/27/19 at 08:58; Status DC Lactobacillus Rhamnosus (Culturelle) 1 cap BID PO Last administered on 01/29/19at 08:23; Start 01/28/19 at 21:00 Active Scripts Active Vitamin D3 (Cholecalciferol (Vitamin D3)) 25 Mcg Tablet 1,000 Unit PO DAILY 30 Days Oxybutynin Chloride 5 Mg Tablet 5 Mg PO QHS 30 Days Acetaminophen 500 Mg Tablet 500 Mg PO PRN Q6HRS PRN 7 Days Metoprolol Succinate ( Xl ) (Metoprolol Succinate) 25 Mg Tab.er.24h 25 Mg PO DAILY 30 Days Cefdinir 300 Mg Capsule 300 Mg PO BID 5 Days Reported Ampyra (Dalfampridine) 10 Mg Tab.er.12h 1 Tab PO BID 30 Days Vitals/I & O Vital Sign - Last 24 Hours 01/28/19 01/28/19 01/28/19 01/28/19 11:59 15:13 19:00 20:30 Temp 98.2 98.1 98.1 98.2 98.1 98.1 Pulse 90 90 86 Resp 16 16 18 B/P (MAP) 112/68 (83) 106/64 (78) 108/56 (73) Pulse Ox 94 94 94 O2 Delivery Room Air Room Air Room Air Room Air 01/28/19 01/29/19 01/29/19 01/29/19 23:00 03:00 07:00 08:23 Temp 98.1 98.1 97.4 98.1 98.1 97.4 Pulse 79 85 74 74 Resp 18 18 18 B/P (MAP) 106/54 (71) 108/58 (75) 108/68 (81) 108/68 Pulse Ox 94 96 95 O2 Delivery Room Air Room Air Room Air Intake and Output 01/28/19 01/28/19 01/29/19 15:00 23:00 07:00 Intake Total 560 ml 200 ml 340 ml Output Total 1000 ml 1450 ml Balance 560 ml -800 ml -1110 ml SANA GARCIA MD Jan 29, 2019 09:23
--- NOTE | 2019-01-29 09:43 | PDOC ---
PROGRESS NOTES Subjective Subjective no new problems Objective Objective Vital Signs Date Time Temp Pulse Resp B/P (MAP) Pulse Ox O2 Delivery O2 Flow Rate FiO2 01/29/19 08:23 74 108/68 01/29/19 07:00 97.4 18 95 Room Air 97.4 Intake and Output 01/29/19 07:00 Intake Total 1100 ml Output Total 2450 ml Balance -1350 ml Intake Oral 1100 ml Output Urine Total 2450 ml Physical Exam Abdomen: Normal bowel sounds, Soft Heart: Regular rate, Normal S1, Normal S2 Extremities: No clubbing General: Alert HEENT: Atraumatic Lungs: Clear to auscultation MUSCULOSKELETAL: No swelling Neuro: Normal speech Psych/Mental Status: Mood NL COMMENT weakness legs Assessment Assessment FINAL IMPRESSION: 1. Multiple sclerosis with exacerbation. 2. Developmental challenged 3. Suprapubic catheter present for neurogenic bladder. 4. Generalized weakness, wheelchair level. 5. Possible urinary tract infection, Plan:d/c to SNU or home with home health today. waiting for SNU placement MRI brain showed new lesions. EEG neg labs ok . d/c steroids On oral antibiotics for uti.> 100,000 gram neg, klebsella s/s/ to cephalosprins Pt was admitted to the hospital. IV solumedrol tid for MS exacerbation. Urine cultures sent, start with IV Rocephin. Neuro was consulted. Rehab was consulted. PT, OT, and social work, probably SNU placement. Deep venous thrombosis prevention. Comment Review of Relevant I have reviewed the following items raúl (where applicable) has been applied. Labs Microbiology 01/24/19 Urine Culture - Final, Complete 01/24/19 Urine Culture Result 1 (MICHELINE) - Final, Complete 01/24/19 Antimicrobic Susceptibility - Final, Complete Medications Current Medications Lactobacillus Rhamnosus (Culturelle) 1 cap BID PO Last administered on 01/29/19at 08:23; Start 01/28/19 at 21:00 Vitals/I & O Vital Sign - Last 24 Hours 01/28/19 01/28/19 01/28/19 01/28/19 11:59 15:13 19:00 20:30 Temp 98.2 98.1 98.1 98.2 98.1 98.1 Pulse 90 90 86 Resp 16 16 18 B/P (MAP) 112/68 (83) 106/64 (78) 108/56 (73) Pulse Ox 94 94 94 O2 Delivery Room Air Room Air Room Air Room Air 01/28/19 01/29/19 01/29/19 01/29/19 23:00 03:00 07:00 08:23 Temp 98.1 98.1 97.4 98.1 98.1 97.4 Pulse 79 85 74 74 Resp 18 18 18 B/P (MAP) 106/54 (71) 108/58 (75) 108/68 (81) 108/68 Pulse Ox 94 96 95 O2 Delivery Room Air Room Air Room Air l Intake and Output 01/28/19 01/28/19 01/29/19 15:00 23:00 07:00 Intake Total 560 ml 200 ml 340 ml Output Total 1000 ml 1450 ml Balance 560 ml -800 ml -1110 ml NEELIMA SAMAYOA MD Jan 29, 2019 09:43
[2019-01-29 11:00] VITALS: BP 104/57
--- NOTE | 2019-01-29 11:11 | NUR ---
SW following. Discussed with RN, SW struggling to find SNU placement due to pt not having skillable needs. SW waiting for news from [facility]. Dr. Ramses phillips with pt discharging home. SW left voicemail for pt's mother Roya. Awaiting call back.
--- NOTE | 2019-01-29 13:55 | NUR ---
SULMA following. Pt denied for SNU at [facility]. SULMA spoke with Roya regarding home and home health. Roya advised they had home health through [facility]. SULMA contacted [facility], they have discharged pt from their services and will not be able to see her again. SULMA spoke with Roya, she is agreeable to [facility]. Family [facility] been approved [facility], [facility] will work with family to reapply for medicaid and figure out the home based caregivers. Roya wanting to take pt home rather than LTC at this time. Dr. Pearce wrote an order for a cathleen lift for at home to hopefully assist with pt. SULMA will need a script for this to fax to a Jaco Solarsi. SULMA notified Dr. Pearce of this. RN notified. Plan: Pt will discharge home with [facility] PT/OT/RN/[employer] by [facility] between [id number]. PATIENT IS A HIGH RISK READMISSION.
[2019-01-29 14:53] VITALS: BP 108/69
--- NOTE | 2019-01-29 14:57 | PDOC ---
PROGRESS NOTES Assessment Assessment MS. UTI. Neurogenic bladder dysfunction. Wheelchair bound. Developmental delay. No evidence of MS flare up this time. RECOMMENDATIONS/PLAN: Treat medical diseases. Treat UTI per medical team. Continue Ampyra. Steroids Not recommended this time. No MS flare up this time. OT/PT. FU with PCP. FU with her neurologist in . Brain MRI w/wo contrast: No enhancement. Progression changes noted compare with MRI in 2017. PAST MEDICAL HISTORY: MS. Developmental delay. UTIs. Wheelchair bound. PAST SURGERY HISTORY: No major surgery recently. ALLERGY: Unknown MEDICATIONS: Refer to [facility] FAMILY HISTORY: Non contributory. SOCIAL HISTORY: Lives at home with her family. Denies smoking, drinking, and illicit drug use. REVIEW OF SYSTEMS: Constitutional: No malnutrition, weight loss, cachexia. Head: No traumatic brain or head injury. Skin: No edema, or rash. Ear: No infection. Eyes: No vision loss or color blindness. Nose: No bleeding or purulent discharges. Hearing: No hearing decrease. Neck: No injury. Breast: No history of cancer, masses,or discharges. Cardiac: No TX, arrhythmia, CAD. Pulmonary: No COPD. GI: No GI ulcer, GI bleeding. Urinary/genital: UTIs. Endocrinologic: No cousin face, craniofacial dysmorphism, polydactyly. Skeletomuscular: Generalized weakness. Neurological: see HP. Psychiatric: Denies drug use/abuse. Otherwise, not [id number] review of systems. PHYSICAL EXAMINATION: General appearance is in no acute distress. HEENT: Normocephalic and nontraumatic. Eyes, nose, ears, and throat are unremarkable. Neck is supple. No lymphadenopathy. No crepitus. Cardiovascular: S1, S2, regular rate and rhythm. Pulmonary: Clear to auscultation bilaterally. Abdomen: Bowel sounds are positive. Extremities: No rash, lesions, or edema. No restriction of range of motion NEUROLOGICAL EXAMINATION: Awake. Partially oriented to time, place and person. PERRL. EOMI. CN: no focal findings. Muscle tone: within normal. Muscle strength: 5 UE, 4+ LE, Left side 4 DTR: 1-2 Plantar reflex: Neutral response bilaterally Gait: not examined. Sensory exam: no acute abnormal findings. No acute cerebellar signs elicited. F-T-N test mildly inaccurate. Objective Objective Vital Signs Date Time Temp Pulse Resp B/P (MAP) Pulse Ox O2 Delivery O2 Flow Rate FiO2 01/29/19 11:00 98.4 96 21 104/57 (73) 96 Nasal Cannula 98.4 Intake and Output 01/29/19 07:00 Intake Total 1100 ml Output Total 2450 ml Balance -1350 ml Intake Oral 1100 ml Output Urine Total 2450 ml Vitals Signs Vitals VS - Last 72 Hours, by Label Date Time Temp Pulse Resp B/P (MAP) Pulse Ox O2 Delivery O2 Flow Rate FiO2 01/29/19 11:00 98.4 96 21 104/57 (73) 96 Nasal Cannula 98.4 01/29/19 08:25 Room Air 01/29/19 08:23 74 108/68 01/29/19 07:00 97.4 74 18 108/68 (81) 95 Room Air 97.4 01/29/19 03:00 98.1 85 18 108/58 (75) 96 Room Air 98.1 01/28/19 23:00 98.1 79 18 106/54 (71) 94 Room Air 98.1 01/28/19 20:30 Room Air 01/28/19 19:00 98.1 86 18 108/56 (73) 94 Room Air 98.1 01/28/19 15:13 98.1 90 16 106/64 (78) 94 Room Air 98.1 01/28/19 11:59 98.2 90 16 112/68 (83) 94 Room Air 98.2 01/28/19 08:00 Room Air 01/28/19 07:59 97.6 69 16 103/55 (71) 94 Room Air 97.6 Laboratory Laboratory Microbiology 01/24/19 Urine Culture - Final, Complete 01/24/19 Urine Culture Result 1 (MICHELINE) - Final, Complete 01/24/19 Antimicrobic Susceptibility - Final, Complete Medication Medications Current Medications Lactobacillus Rhamnosus (Culturelle) 1 cap BID PO Last administered on 01/29/19at 08:23; Start 01/28/19 at 21:00 Comment Review of Relevant I have reviewed the following items raúl (where applicable) has been applied. REHAN MENDEZ MD Jan 29, 2019 14:57
--- NOTE | 2019-01-29 16:07 | NUR ---
Discharged to home per w/c transportation, belongings taken with patient, instruction placed in belongings, suprapubic catheter patent
--- NOTE | 2019-01-30 16:13 | PDOC ---
Provider Note Provider Note Addendum to Discharge summary. final diagosis,no exacerbration of MS. no new lesions on MRi , slight inc in seize of old lesion spoke with Neuro, No MS exacerbation. f/u with Neurology out pt NEELIMA SAMAYOA MD Jan 30, 2019 16:13
== END 2019-01-29 15:59 | disposition home health service (06) | DRG 698 ==
LOC: 4 NORTH 09:48
PROVIDERS: ADMIT Internal Medicine; ATTEND Internal Medicine
DX: T83.510A Infection and inflammatory reaction due to cystostomy catheter, initial encounter (principal); G93.41 Metabolic encephalopathy; G82.50 Quadriplegia, unspecified; K59.2 Neurogenic bowel, not elsewhere classified; N39.0 Urinary tract infection, site not specified; G35 Multiple sclerosis; F79 Unspecified intellectual disabilities; I10 Essential (primary) hypertension; N31.9 Neuromuscular dysfunction of bladder, unspecified; Z99.3 Dependence on wheelchair; Z68.29 Body mass index [BMI] 29.0-29.9, adult; E66.9 Obesity, unspecified; B96.1 Klebsiella pneumoniae [K. pneumoniae] as the cause of diseases classified elsewhere
CPT/HCPCS: 36415; 70553; 71045; 80053; 80061; 80307; 81001; 83036; 84443; 85025; 87086; 87186; 90471; 90686; 95816; A9575; J0696; J1650; J2930; J7030; J7512; 97530; 97535; G0378

== ENCOUNTER 2019-06-29 17:51 | Emergency (ER) | payer OTHER, MEDICAID ==
[~2019-06-29] VITALS: Ht 165.1 cm; Wt 86.0 kg
[~2019-06-29 17:51] MED LIST: ACET500T68 PO; CEFD300C PO; CHOL10003 PO; DALF10TA PO; METO-239 PO; OXYB5TAB10 PO
[2019-06-29 17:55] VITALS: BP 115/77
[2019-06-29 18:27] LABS: BILIRUBIN,URINE NEGATIVE (NEG); CLARITY,URINE CLOUDY; COLOR,URINE YELLOW; NITRITE,URINE NEGATIVE (NEG); PROTEIN,URINE 30 mg/dL (NEG-TRACE); UROBILINOGEN,URINE 0.2 mg/dL (0.2 mg/dL)
[2019-06-29 18:40] LABS: AMORPHOUS SEDIMENT,UR PRESENT /HPF; SQUAMOUS EPITHELIAL CELL,UR MOD /LPF
[2019-06-29 18:41] LABS: BACTERIA,URINE MODERATE /HPF (0-FEW); WBC,URINE 20-40 /HPF (0-4)
[2019-06-29 18:43] LABS: U PREG PATIENT NEGATIVE (NEG)
[2019-06-29] MEDS ORDERED: LIDOCAINE 1% PF 2 ML VIAL. INJ ONE (18:45)
[2019-06-29] MEDS ORDERED: cefTRIAXone IM 1 GM VIAL IM ONE (18:45)
--- NOTE | 2019-06-29 18:58 | PHYS DOC ---
Past Medical History Past Medical History: Other Additional Past Medical Histor: developmental delay (RENATA MATTHEWS APRN) Additional Past Surgical Histo: SUPRAPUBIC CATHETER (RENATA MATTHEWS APRN) Smoking Status: Never Smoker Alcohol Use: None (RENATA MATTHEWS APRN) Attending Signature I have participated in the care of this patient and I have reviewed and agree with all pertinent clinical information above including history, exam, and recommendations. (TREVOR MILLIGAN MD) General Adult EDM: Chief Complaint: URINE CATHETER PROBLEM HPI: HPI: Patient is a 38 year old female with a history of MS, developmental delay, who presents to the ED today to be evaluated because the home health nurse was concerned about the color of her urine. Patient has a suprapubic catheter. Most of the history is received from the nursing staff and EMS (RENATA MATTHEWS APRN) Review of Systems: Review of Systems: Constitutional: Denies fever or chills. [] Eyes: Denies change in visual acuity. [] HENT: Denies nasal congestion or sore throat. [] Respiratory: Denies cough or shortness of breath. [] Cardiovascular: Denies chest pain or edema. [] GI: Denies abdominal pain, nausea, vomiting, bloody stools or diarrhea. [] : Reports colored urine Musculoskeletal: Denies back pain or joint pain. [] Integument: Denies rash. [] Neurologic: Denies headache, focal weakness or sensory changes. [] Lymphatic: Denies swollen glands. [] Psychiatric: Denies depression or anxiety. [] (RENATA MATTHEWS APRN) Heart Score: Risk Factors: Risk Factors: DM, Current or recent (<one month) smoker, HTN, HLP, family history of CAD, obesity. Risk Scores: Score 0 - 3: 2.5% MACE over next 6 weeks - Discharge Home Score 4 - 6: 20.3% MACE over next 6 weeks - Admit for Clinical Observation Score 7 - 10: 72.7% MACE over next 6 weeks - Early Invasive Strategies (RENATA MATTHEWS APRN) Current Medications: Current Medications Medications (Trade) Dose Ordered Sig/Riky Start Time Stop Time Status Last Admin Dose Admin Ceftriaxone Sodium (Rocephin Im) 1 gm 1X ONCE 06/29/19 18:45 06/29/19 18:47 DC Lidocaine HCl (Xylocaine-Mpf 1% 2ml Vial) 2 ml 1X ONCE 06/29/19 18:45 06/29/19 18:47 DC (RENATA MATTHEWS WRIST CLOSER) Allergies: Allergies: Allergies Coded Allergies Type Severity Reaction Last Updated Verified No Known Drug Allergies 01/24/19 No (RENATA MATTHEWS WRIST CLOSER) Physical Exam: PE: Constitutional: Well developed, well nourished, no acute distress, non-toxic appearance. [] HENT: Normocephalic, atraumatic, bilateral external ears normal, oropharynx moist, no oral exudates, nose normal. [] Eyes: PERRLA, EOMI, conjunctiva normal, no discharge. [] Neck: Normal range of motion, no tenderness, supple, no stridor. [] Cardiovascular:Heart rate regular rhythm, no murmur [] Lungs & Thorax: Bilateral breath sounds clear to auscultation [] Abdomen: Bowel sounds normal, soft, no tenderness, no masses, no pulsatile masses. [] -suprapubic catheter present, urine appears dark and has sediments catheter insertion site with trace mucus type drainage yellow in color, trace erythema on the catheter insertion site. Skin: Warm, dry, no erythema, no rash. [] Back: No tenderness, no CVA tenderness. [] Extremities: No tenderness, no cyanosis, no clubbing, ROM intact, no edema. [] Neurologic: Alert and oriented X 1-baseline, normal motor function, normal sensory function, no focal deficits noted. [] Psychologic: Affect normal, judgement normal, mood normal. [] (BYRONRENATA WRIST CLOSER) Current Patient Data: Labs: Laboratory Tests Test 06/29/19 17:53 Urine Collection Type Unknown Urine Color Yellow Urine Clarity Cloudy Urine pH 8.0 (<5.0-8.0) Urine Specific [place] 1.015 (1.000-1.030) Urine Protein 30 mg/dL (NEG-TRACE) Urine Glucose (UA) Negative mg/dL (NEG) Urine Ketones (Stick) Negative mg/dL (NEG) Urine Blood Negative (NEG) Urine Nitrite Negative (NEG) Urine Bilirubin Negative (NEG) Urine Urobilinogen Dipstick 0.2 mg/dL (0.2 mg/dL) Urine Leukocyte Esterase Large (NEG) Urine RBC 1-2 /HPF (0-2) Urine WBC 20-40 /HPF (0-4) Urine Squamous Epithelial Cells Mod /LPF Urine Amorphous Sediment Present /HPF Urine Bacteria Moderate /HPF (0-FEW) Urine Mucus Slight /LPF Urine Test Negative (NEG) Vital Signs: Vital Signs Date Time Temp Pulse Resp B/P (MAP) Pulse Ox O2 Delivery O2 Flow Rate FiO2 06/29/19 17:55 98.5 70 16 115/77 (90) 100 Room Air 98.5 (RENATA MATTHEWS APRN) EKG: EKG: [] (RENATA MATTHEWS APRN) Radiology/Procedures: Radiology/Procedures: [] (RENATA MATTEHWS APRN) Course & Med Decision Making: Course & Med Decision Making Pertinent Labs and Imaging studies reviewed. (See chart for details) This is a 38-year-old female patient with history of MS and developmental delay presenting to the ED today to be evaluated for possible suprapubic catheter induced UTI. Patient is afebrile. Urine analysis positive for infection. Given Rocephin in the ED. Discharged on cephalexin. Follow-up with PCP and urologist next week (RENATA MATTHEWS APRN) Dragon Disclaimer: Dragon Disclaimer: This electronic medical record was generated, in whole or in part, using a voice recognition dictation system. (RENATA MATTHEWS APRN) Departure Departure Impression: Primary Impression: Urinary tract infection Qualified Codes: T83.511A - Infection and inflammatory reaction due to indwelling urethral catheter, initial encounter; N39.0 - Urinary tract infection, site not specified Disposition: HOME, SELF-CARE Condition: STABLE Referrals: NEELIMA SAMAYOA MD (PCP) follow up next week Patient Instructions: Urinary Tract Infection Additional Instructions: You have urinary tract infection, we put you on antibiotics, ensure you complete them. Follow-up with your urologist and primary care doctor next week, please push fluids. Scripts Cephalexin (CEPHALEXIN) 500 Mg Tablet 1 TAB PO BID, #14 TAB Prov: RENATA MATTHEWS APRN 06/29/19 RENATA MATTHEWS APRN Jun 29, 2019 18:58 TREVOR MILLIGAN MD Jun 30, 2019 01:36
[2019-06-29] MEDS ORDERED: CEPH500T PO (19:00)
== END 2019-06-29 20:21 | disposition home or self-care (01) ==
LOC: ER 17:51
DX: N39.0 Urinary tract infection, site not specified (principal)
CPT/HCPCS: 81001; 81025; 87086; 96372; 99284; J0696; J3490